=== PATIENT | female | born 1930 | race African-American/Black ===

== ENCOUNTER 2019-07-21 01:33 | Inpatient (IN) | payer OTHER, MEDICAID ==
[~2019-07-21] VITALS: Ht 172.7 cm; Wt 97.7 kg
[2019-07-21] MEDS ORDERED: IV NORMAL SALINE 1000ML BAG 1,000 ML IV ONE (02:30)
[2019-07-21 02:49] LABS: BASO # 0.1 x10^3/uL (0.0-0.2); BASO % 1 % (0-3); EOS # 0.1 x10^3/uL (0.0-0.7); EOS % 2 % (0-3); HEMATOCRIT 35.4 % (36.0-47.0); HEMOGLOBIN 11.5 g/dL (12.0-15.5); LYMPH # 1.7 x10^3/uL (1.0-4.8); LYMPH % 26 % (24-48); MEAN CORPUSCULAR HEMOGLOBIN 28 pg (25-35); MEAN CORPUSCULAR HGB CONC 33 g/dL (31-37); MEAN CORPUSCULAR VOLUME 85 fL (79-100); MONO # 0.5 x10^3/uL (0.0-1.1); MONO % 8 % (0-9); NEUT % 64 % (31-73); PLATELET COUNT 206 x10^3/uL (140-400); RED BLOOD COUNT 4.16 x10^6/uL (3.50-5.40); RED CELL DISTRIBUTION WIDTH 14.6 % (11.5-14.5); WHITE BLOOD COUNT 6.3 x10^3/uL (4.0-11.0)
[2019-07-21 03:02] LABS: CALCIUM 8.4 mg/dL (8.5-10.1); GFR 63.5; POTASSIUM 4.2 mmol/L (3.5-5.1)
--- NOTE | 2019-07-21 03:05 | PHYS DOC ---
Past Medical History Past Medical History: A-Fib, Dementia, Hypothyroid Additional Past Medical Histor: OSTEOARTHRITIS Past Medical History Limited due to dementia Past Surgical History: No Surgical History Additional Past Surgical Histo: POOR HISTORIAN Past Surgical History Limited due to dementia Smoking: Quit Greater Than 1 Year Alcohol Use: None Drug Use: None Social History Limited due to dementia Adult General Chief Complaint Chief Complaint: NEURO SYMPTOMS/DEFICITS HPI HPI 89-year-old female with past medical history of dementia presents via EMS from [facility] ([facility]) with report throat today at approximately 0030. Patient reports she lost consciousness and ended up falling thereby striking left side of her face. Patient reports she feels very "shaky ". Denies nausea or vomiting. Patient does use aspirin daily. Denies chest pain. Patient is a poor historian given history of dementia. History of present illness therefore limited. Review of Systems Review of Systems Constitutional: Denies fever or chills Eyes: Denies redness or eye pain HENT: Denies epistaxis Respiratory: Denies cough or shortness of breath Cardiovascular: Denies chest pain or palpitations GI: Denies abdominal pain, nausea, or vomiting : Denies dysuria or hematuria Integument: Denies laceration Neurologic: Reports headache and syncopal episode Review of systems limited secondary to dementia Current Medications Current Medications Current Medications Medications (Trade) Dose Ordered Sig/Branden Start Time Stop Time Status Last Admin Dose Admin Ondansetron HCl (Zofran) 4 mg PRN Q8HRS PRN 07/21/19 03:15 07/22/19 03:14 Sodium Chloride 1,000 ml @ 1,000 mls/hr 1X ONCE 07/21/19 02:30 07/21/19 03:29 DC 07/21/19 02:40 1,000 MLS/HR Allergies Allergies Allergies Coded Allergies Type Severity Reaction Last Updated Verified No Known Drug Allergies 07/21/19 No Physical Exam Physical Exam Constitutional: Well developed, well nourished, no acute distress, non-toxic appearance HENT: Normocephalic, small contusion noted with left face, oropharynx moist Eyes: PERRL, EOMI, amblyopia noted, conjunctiva normal, no discharge Neck: Normal range of motion, no midline tenderness, supple Cardiovascular: Heart rate normal, regular rhythm Lungs & Thorax: Bilateral breath sounds clear to auscultation, no wheezing Abdomen: Soft, no tenderness, pelvis stable and nontender Skin: Warm, dry, no erythema, no rash Extremities: No tenderness, ROM intact, 1+ edema Neurologic: Alert and oriented to name only, bilateral lower extremity strength 3/5, bilateral upper extremity strength 5+5, sensation intact, finger to nose cerebellar function intact Psychologic: Affect normal, judgement abnormal Current Patient Data Vital Signs Vital Signs Date Time Temp Pulse Resp B/P (MAP) Pulse Ox O2 Delivery O2 Flow Rate FiO2 07/21/19 03:40 68 20 96 07/21/19 01:33 97.6 164/87 (112) Room Air 97.6 Lab Values Laboratory Tests Test 07/21/19 02:40 07/21/19 03:28 White Blood Count 6.3 x10^3/uL (4.0-11.0) Red Blood Count 4.16 x10^6/uL (3.50-5.40) Hemoglobin 11.5 g/dL (12.0-15.5) L Hematocrit 35.4 % (36.0-47.0) L Mean Corpuscular Volume 85 fL (79-100) Mean Corpuscular Hemoglobin 28 pg (25-35) Mean Corpuscular Hemoglobin Concent 33 g/dL (31-37) Red Cell Distribution Width 14.6 % (11.5-14.5) H Platelet Count 206 x10^3/uL (140-400) Neutrophils (%) (Auto) 64 % (31-73) Lymphocytes (%) (Auto) 26 % (24-48) Monocytes (%) (Auto) 8 % (0-9) Eosinophils (%) (Auto) 2 % (0-3) Basophils (%) (Auto) 1 % (0-3) Neutrophils # (Auto) 4.0 x10^3/uL (1.8-7.7) Lymphocytes # (Auto) 1.7 x10^3/uL (1.0-4.8) Monocytes # (Auto) 0.5 x10^3/uL (0.0-1.1) Eosinophils # (Auto) 0.1 x10^3/uL (0.0-0.7) Basophils # (Auto) 0.1 x10^3/uL (0.0-0.2) Prothrombin Time 13.0 SEC (11.7-14.0) Prothrombin Time INR 1.0 (0.8-1.1) Activated Partial Thromboplast Time 32 SEC (24-38) Sodium Level 144 mmol/L (136-145) Potassium Level 4.2 mmol/L (3.5-5.1) Chloride Level 106 mmol/L (98-107) Carbon Dioxide Level 25 mmol/L (21-32) Anion Gap 13 (6-14) Blood Urea Nitrogen 29 mg/dL (7-20) H Creatinine 1.0 mg/dL (0.6-1.0) Estimated GFR (Cockcroft-Gault) 63.5 BUN/Creatinine Ratio 29 (6-20) H Glucose Level 96 mg/dL (70-99) Lactic Acid Level 1.9 mmol/L (0.4-2.0) Calcium Level 8.4 mg/dL (8.5-10.1) L Magnesium Level 2.5 mg/dL (1.8-2.4) H Total Bilirubin 0.4 mg/dL (0.2-1.0) Aspartate Amino Transferase (AST) 19 U/L (15-37) Alanine Aminotransferase (ALT) 17 U/L (14-59) Alkaline Phosphatase 66 U/L (46-116) Ammonia < 10 mcmol/L (11-34) L Creatine Kinase 156 U/L (26-192) Creatine Kinase MB (Mass) 1.6 ng/mL (0.0-3.6) Creatine Kinase MB Relative Index 1.0 % (0-4) Troponin I Quantitative < 0.017 ng/mL (0.000-0.055) Total Protein 7.8 g/dL (6.4-8.2) Albumin 3.9 g/dL (3.4-5.0) Albumin/Globulin Ratio 1.0 (1.0-1.7) Urine Collection Type U cath Urine Color Yellow Urine Clarity Clear Urine pH 6.5 Urine Specific Victor 1.020 Urine Protein Negative mg/dL (NEG-TRACE) Urine Glucose (UA) Negative mg/dL (NEG) Urine Ketones (Stick) Negative mg/dL (NEG) Urine Blood Negative (NEG) Urine Nitrite Negative (NEG) Urine Bilirubin Negative (NEG) Urine Urobilinogen Dipstick 1.0 mg/dL (0.2 mg/dL) Urine Leukocyte Esterase Small (NEG) Urine RBC Occ /HPF (0-2) Urine WBC 1-4 /HPF (0-4) Urine Squamous Epithelial Cells Few /LPF Urine Amorphous Sediment Present /HPF Urine Bacteria 0 /HPF (0-FEW) Urine Mucus Slight /LPF Laboratory Tests 07/21/19 02:40 Laboratory Tests 07/21/19 02:40 EKG EKG @ 0245 NSR at 82 bpm, occasional PVC, NO ST elevation, QRS 94ms, QT/QTc 408/480ms Radiology/Procedures Radiology/Procedures PROCEDURE: CT HEAD, CERVICAL SPINE, & MAXILLOFACIAL WO CONTRAST CT Head W/O Contrast: History: Pain status post fall Comparison: none Axial images were obtained without contrast. There is moderate diffuse atrophy. There is no mass effect, extraaxial fluid collections or hydrocephalus. There is no gross bleed. Mild to moderate, patchy periventricular and subcortical white matter hypoattenuation is seen. There is no focal loss of lyons-white matter distinction to suggest acute ischemia, i.e. stroke. Impression: No acute findings. End impression CT maxillofacial without contrast History: sinus infection Axial helical images of the face were obtained without contrast. Axial and coronal reconstruction was performed. The nasal septum is mostly midline. The ostiomeatal complexes are narrow but patent. The paranasal sinuses are clear. The visualized osseous structures appear intact. The orbits appear normal. There is a hematoma above the left orbit. Impression: Immature lobe of the left orbit. No fracture seen. End impression CT C-Spine without contrast: Clinical History: Pain status post fall Technique: Axial helical images of the cervical spine were obtained without contrast, axial coronal and sagittal reconstruction was performed. Findings: There is no loss of vertebral body stature. There is no prevertebral soft tissue swelling. The vertebral bodies are well aligned. There is minimal reversal of the normal cervical lordosis which can be positional or could be chronic. The C1-C2 relationship is normal. There is gross osteopenia which limits sensitivity for possible nondisplaced fracture. The visualized osseous survey. Intact. Evaluation of the central canal is limited without contrast. There is multiple posterior disc bulges resulting in flattening of the thecal sac. There does not appear to be gross flattening of the cervical cord. There is moderate narrowing of multiple neuroforamen. There is a 4 cm cystic lesion in the left lobe of the thyroid. Impression: 1. 4 cm cystic lesion in the left lobe of the thyroid. The patient should have a follow-up ultrasound thyroid as an outpatient. 2. Gross osteopenia could be secondary to osteoporosis. 3. No evidence of fracture or malalignment. Clinical correlation suggested. PQRS Compliance Statement: One or more of the following individualized dose reduction techniques were utilized for this examination: 1. Automated exposure control 2. Adjustment of the mA and/or kV according to patient size 3. Use of iterative reconstruction technique Electronically signed by: Oneal Diaz III, MD (07/21/2019 3:29 AM) [facility] Course & Med Decision Making Course & Med Decision Making Pertinent Labs and Imaging studies reviewed. (See chart for details) She with past medical history of dementia presents with report of syncopal episode striking left side of her face. History of aspirin use. NIHSS 7 primarily due to BLE weakness (2pts each LE). EKG stable. Labs obtained and posted to chart. Chest x-ray stable. CT head/cervical spine/maxillofacial without acute process. An incidental thyroid cyst appreciated. A copy of CT results provided to patient's family for outpatient follow-up. Patient requiring admission for further evaluation and treatment. Discussed with Dr. Morejon (hospitalist) who is in agreement with admission. Neurology consultation placed. Discussed findings and plan with patient and family, who acknowledge understanding and agreement. Dragon Disclaimer Dragon Disclaimer This electronic medical record was generated, in whole or in part, using a voice recognition dictation system. Departure Departure Impression: Primary Impression: Weakness Additional Impressions: Facial contusion Thyroid cyst Disposition: ADMITTED INPATIENT Admitting Physician: TRIPP (Darleen) Condition: STABLE Referrals: CARMENCITA ECHAVARRIA MD (PCP) NIHSS Stroke Scale NIH Stroke Scale: NIH Stroke Scale Response (Comments) Value Level of Consciousness: 0 Alert/Responsive 0 LOC Questions: 2 Answers neither correct 2 LOC Commands: 0 Performs both tasks 0 Best Gaze: 0 Normal 0 Visual: 0 No visual loss 0 Facial Palsy: 0 Normal, symmetrical 0 Motor - Left Arm 0 No drift 0 Motor - Right Arm 0 No drift 0 Motor - Left Leg 2 Some effort 2 Motor: Right Leg 2 Some effort 2 Limb Ataxia: 0 Absent 0 Sensory: 0 No loss 0 Best Language: 1 Mild to mod aphasia 1 Dysathria: 0 Normal 0 Extinction and Inattention: 0 Normal 0 Total 7 Problem Qualifiers Additional Impressions: Facial contusion Encounter type: initial encounter Qualified Codes: S00.83XA - Contusion of other part of head, initial encounter RADHA QUIJANO DO Jul 21, 2019 03:05
[2019-07-21 03:06] LABS: ALBUMIN 3.9 g/dL (3.4-5.0); MAGNESIUM 2.5 mg/dL (1.8-2.4); TOTAL BILIRUBIN 0.4 mg/dL (0.2-1.0); TOTAL PROTEIN 7.8 g/dL (6.4-8.2)
[2019-07-21] MEDS ORDERED: ONDANSETRON PF 4 MG/2 ML VIAL. IV PRN (03:15)
--- NOTE | 2019-07-21 03:32 | RAD ---
CT Head W/O Contrast: History: Pain status post fall Comparison: none Axial images were obtained without contrast. There is moderate diffuse atrophy. There is no mass effect, extraaxial fluid collections or hydrocephalus. There is no gross bleed. Mild to moderate, patchy periventricular and subcortical white matter hypoattenuation is seen. There is no focal loss of lyons-white matter distinction to suggest acute ischemia, i.e. stroke. Impression: No acute findings. End impression CT maxillofacial without contrast History: sinus infection Axial helical images of the face were obtained without contrast. Axial and coronal reconstruction was performed. The nasal septum is mostly midline. The ostiomeatal complexes are narrow but patent. The paranasal sinuses are clear. The visualized osseous structures appear intact. The orbits appear normal. There is a hematoma above the left orbit. Impression: Immature lobe of the left orbit. No fracture seen. End impression CT C-Spine without contrast: Clinical History: Pain status post fall Technique: Axial helical images of the cervical spine were obtained without contrast, axial coronal and sagittal reconstruction was performed. Findings: There is no loss of vertebral body stature. There is no prevertebral soft tissue swelling. The vertebral bodies are well aligned. There is minimal reversal of the normal cervical lordosis which can be positional or could be chronic. The C1-C2 relationship is normal. There is gross osteopenia which limits sensitivity for possible nondisplaced fracture. The visualized osseous survey. Intact. Evaluation of the central canal is limited without contrast. There is multiple posterior disc bulges resulting in flattening of the thecal sac. There does not appear to be gross flattening of the cervical cord. There is moderate narrowing of multiple neuroforamen. There is a 4 cm cystic lesion in the left lobe of the thyroid. Impression: 1. 4 cm cystic lesion in the left lobe of the thyroid. The patient should have a follow-up ultrasound thyroid as an outpatient. 2. Gross osteopenia could be secondary to osteoporosis. 3. No evidence of fracture or malalignment. Clinical correlation suggested. PQRS Compliance Statement: One or more of the following individualized dose reduction techniques were utilized for this examination: 1. Automated exposure control 2. Adjustment of the mA and/or kV according to patient size 3. Use of iterative reconstruction technique Electronically signed by: Oneal Diaz III, MD (07/21/2019 3:29 AM) [facility]
[2019-07-21 03:40] LABS: BILIRUBIN,URINE NEGATIVE (NEG); CLARITY,URINE CLEAR; COLOR,URINE YELLOW; NITRITE,URINE NEGATIVE (NEG); PH,URINE 6.5; PROTEIN,URINE NEGATIVE (NEG-TRACE)
[2019-07-21 03:47] LABS: AMORPHOUS SEDIMENT,UR PRESENT /HPF; BACTERIA,URINE 0 /HPF (0-FEW); RBC,URINE OCC /HPF (0-2); SQUAMOUS EPITHELIAL CELL,UR FEW /LPF
[2019-07-21 04:00] VITALS: BP 167/90
--- NOTE | 2019-07-21 04:47 | NUR ---
Around 0405 pt. arrived from ED via bed w/ weakness and L-facial contusion r/t fall @ NH. She is A/O to self and can make some needs known. Family @ BS.
[2019-07-21] MEDS ORDERED: MELA3TAB56 PO (06:03)
[2019-07-21] MEDS ORDERED: MELO7.5T29 PO (06:03)
[2019-07-21] MEDS ORDERED: DILT120T3 PO (06:03)
[2019-07-21] MEDS ORDERED: FERR325T14 PO (06:03)
[2019-07-21] MEDS ORDERED: CHOL10003 PO (06:03)
[2019-07-21] MEDS ORDERED: CALC-530 PO (06:03)
[2019-07-21] MEDS ORDERED: DONE5TAB7 PO (06:03)
[2019-07-21] MEDS ORDERED: ACET325T9 PO (06:03)
[2019-07-21] MEDS ORDERED: ASPI81TA50 PO (06:03)
[2019-07-21] MEDS ORDERED: MENT118G TP (06:03)
[2019-07-21] MEDS ORDERED: LEVO50TA5 PO (06:03)
[2019-07-21] MEDS ORDERED: tumeric PO (06:05)
--- NOTE | 2019-07-21 06:12 | RAD ---
CHEST AP ONLY Clinical History: Technique: AP view of the chest was obtained at 07/21/2019 1:51 AM. Comparison: None. Findings: The heart is borderline enlarged. The pulmonary vasculature is normal. The lungs and pleural margins are clear. There is prior right shoulder total arthroplasty. There is marked degenerative changes of the left shoulder. Impression: Borderline cardiomegaly. Electronically signed by: Oneal Diaz III, MD (07/21/2019 6:09 AM) [facility]
--- NOTE | 2019-07-21 06:18 | NUR ---
Notified 's answering service about consult.
--- NOTE | 2019-07-21 07:05 | EKG ---
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
[2019-07-21 07:35] VITALS: BP 150/79
--- NOTE | 2019-07-21 10:29 | HP ---
ADMIT DATE: 07/21/2019 CHIEF COMPLAINT: Syncope. HISTORY OF PRESENT ILLNESS: The patient is a pleasant 89-year-old female, who has mild dementia. 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 Now, she has got some mild dementia, lives at [facility] and reportedly had a near syncopal episode at 12:30 in this morning. She lost consciousness and ended up falling, striking the left side of her face. She feels very shaky. Rates her symptoms at 6/10, has associated weakness. I discussed the case with ER physician. We have admitted the patient and going to be consulting Cardiology and Neurology. Dr. Berry just saw the patient before I did. He is ordering an MRI. PAST MEDICAL HISTORY: Dementia, AFib, hypothyroidism, osteoarthritis, poor historian. ALLERGIES: None. FAMILY HISTORY: Diabetes. SOCIAL HISTORY: She does not drink, smoke, or take drugs. She currently lives at [facility]. MEDICATIONS: Reviewed, please refer to the MRAD. REVIEW OF SYSTEMS: GENERAL: She complains of weakness. SKIN: No bruising, hair changes or rashes. EYES: No blurred, double or loss of vision. NOSE AND THROAT: No history of nosebleeds, hoarseness or sore throat. HEART: No history of palpitations, chest pain or shortness of breath on exertion. LUNGS: Denies cough, hemoptysis, wheezing or shortness of breath. GASTROINTESTINAL: Denies changes in appetite, nausea, vomiting, diarrhea or constipation. GENITOURINARY: No history of frequency, urgency, hesitancy or nocturia. NEUROLOGIC: Denies history of numbness, tingling, tremor or weakness. PSYCHIATRIC: No history of panic, anxiety or depression. ENDOCRINE: No history of heat or cold intolerance, polyuria or polydipsia. EXTREMITIES: She complains of hand pain from her arthritis. PHYSICAL EXAMINATION: VITALS: Within normal limits and are stable. GENERAL: No apparent distress. Alert and oriented. HEENT: Head is normocephalic, atraumatic. The left eye is deviated more to the left than the right eye. Apparently, this is her baseline. NECK: Supple, no JVD, no thyromegaly was noted. LUNGS: Clear to auscultation in all lung ibarra without rhonchi or wheezing. HEART: RRR, S1, S2 present. Peripheral pulses intact, no obvious murmurs were noted. ABDOMEN: Soft, nontender. Positive bowel sounds no organomegaly, normal bowel sounds. EXTREMITIES: Without any cyanosis, clubbing, or edema. Pedal pulses intact, Homans sign is negative. She does have arthritic changes of the joints on her fingers. NEUROLOGIC: Normal speech, normal tone. A & O x3, moves all extremities, no obvious focal deficits. PSYCHIATRIC: She is a little anxious, little intermittently confused. (Her daughter and son are here, they are good support). SKIN: No ulcerations or rashes, good skin turgor, no jaundice. VASCULAR: Good capillary refill, neurovascular bundle appears to be intact. LABORATORY DATA: Hematology: White count is 6, hemoglobin 11.5, platelets 206. Electrolytes are pending. Troponin is 0. Urinalysis: Small amount of leukocyte esterase with occasional white cells. There are some squamous epithelial cells present as was suspected. The urinalysis is contaminated. INR is 1. CT of the head showed immature lobe of the left orbit, but no acute fractures were noted. There is a 4-mm cyst on the left lobe of the thyroid. Osteopenia was noted. Chest x-ray shows borderline cardiomegaly. ASSESSMENT AND PLAN: Syncopal episode with cardiomegaly and dementia and advanced osteoarthritis. The patient is being admitted. We will consult Neurology, Cardiology, and Rheumatology. Cardiac monitoring, serial enzymes, serial EKGs, check a BNP level, echocardiogram, PT/OT, home meds, DVT prophylaxis, full code. The family has requested that she go to rehab after this if possible. I will order a longterm unit evaluation. KIARA OLIVAREZ DO DR: KARSTEN/drew JOB#: [id number] / [id number]
[2019-07-21] MEDS ORDERED: ACETAMINOPHEN 325 MG TABLET. PO PRN (11:00)
[2019-07-21] MEDS: LEVOTHYROXINE 50 MCG TABLET PO SCH (11:00)
[2019-07-21 11:14] VITALS: BP 157/80
[2019-07-21] MEDS ORDERED: METHYL SALICYLATE/MENTHOL TOPICAL OINTMENT 57GM TUBE. TP PRN (11:15)
--- NOTE | 2019-07-21 12:54 | PDOC2 ---
CARDIAC CONSULT DATE OF CONSULT Date of Consult DATE: 07/21/19 TIME: 12:48 REASON FOR CONSULT Reason for Consult: Syncope CHF Possible pulmonary edema REFERRING PHYSICIAN Referring Physician: Dr. Hernandez SOURCE Source: Chart review, Patient HISTORY OF PRESENT ILLNESS HISTORY OF PRESENT ILLNESS This is am 89 yo female, with a history of AFIB and dementia, who presented secondary to syncopal episode. Patient lives in independently living facility. Was found down on the floor by staff. Suffered abrasion to the left forehead. Was brought to the ED for further evaluation/treatment. HPI limited secondary to dementia. Patient unable to recall events of fall, syncopal episode. Presently denies any chest pain, shortness of breath, dizziness, diaphoresis, or nausea/vomiting. Patient reports feeing "shaky" with hand tremors. Daughter does report that she noticed for shortness of breath upon exertion this past Sunday d uring an outing. Previously followed by cardiology. PAST MEDICAL HISTORY Cardiovascular: AFIB (paroxysmal ), Aortic stenosis CENTRAL NERVOUS SYSTEM: Dementia Musculoskeletal: Osteoarthritis PAST SURGICAL HISTORY Past Surgical History: No pertinent history FAMILY HISTORY Family History: Coronary Artery Disease (daughter), Diabetes SOCIAL HISTORY Smoke: Quit ALCOHOL: none Drugs: None Lives: Group Home (independent living facility ) CURRENT MEDICATIONS CURRENT MEDICATIONS Current Medications Medications (Trade) Dose Ordered Sig/Branden Route PRN Reason Start Time Stop Time Status Last Admin Dose Admin Sodium Chloride 1,000 ml @ 1,000 mls/hr 1X ONCE IV 07/21/19 02:30 07/21/19 03:29 DC 07/21/19 02:40 ALLERGIES ALLERGIES: Coded Allergies: No Known Drug Allergies (Unverified , 07/21/19) ROS Review of System 14 point ROS conducted with pertinent positives noted above in PHI. Limited due to dementia PHYSICAL EXAM General: Alert (to person only ), Cooperative, No acute distress HEENT: Atraumatic Lungs: Clear to auscultation, Normal air movement Heart: Regular rate, Normal S1, Normal S2, Other (3/6 systolic murmur ) Abdomen: Soft, No tenderness Extremities: No edema, Normal pulses Skin: No breakdown, No significant lesion Neuro: Normal speech, Sensation intact Psych/Mental Status: Mood NL MUSCULOSKELETAL: Osteoarthritic changes both hands VITALS/I&O VITALS/I&O: Vital Signs Date Time Temp Pulse Resp B/P (MAP) Pulse Ox O2 Delivery O2 Flow Rate FiO2 10/28/19 11:14 98.8 83 18 157/80 (105) 96 Room Air 98.8 I & O 07/20/19 07/20/19 07/21/19 15:00 23:00 07:00 Intake Total 1000 ml Balance 1000 ml LABS Lab: Laboratory Tests Test 07/21/19 02:40 07/21/19 03:28 07/21/19 06:15 07/21/19 08:50 White Blood Count 6.3 x10^3/uL (4.0-11.0) Red Blood Count 4.16 x10^6/uL (3.50-5.40) Hemoglobin 11.5 g/dL (12.0-15.5) L Hematocrit 35.4 % (36.0-47.0) L Mean Corpuscular Volume 85 fL (79-100) Mean Corpuscular Hemoglobin 28 pg (25-35) Mean Corpuscular Hemoglobin Concent 33 g/dL (31-37) Red Cell Distribution Width 14.6 % (11.5-14.5) H Platelet Count 206 x10^3/uL (140-400) Neutrophils (%) (Auto) 64 % (31-73) Lymphocytes (%) (Auto) 26 % (24-48) Monocytes (%) (Auto) 8 % (0-9) Eosinophils (%) (Auto) 2 % (0-3) Basophils (%) (Auto) 1 % (0-3) Neutrophils # (Auto) 4.0 x10^3/uL (1.8-7.7) Lymphocytes # (Auto) 1.7 x10^3/uL (1.0-4.8) Monocytes # (Auto) 0.5 x10^3/uL (0.0-1.1) Eosinophils # (Auto) 0.1 x10^3/uL (0.0-0.7) Basophils # (Auto) 0.1 x10^3/uL (0.0-0.2) Prothrombin Time 13.0 SEC (11.7-14.0) Prothrombin Time INR 1.0 (0.8-1.1) Activated Partial Thromboplast Time 32 SEC (24-38) Sodium Level 144 mmol/L (136-145) Potassium Level 4.2 mmol/L (3.5-5.1) Chloride Level 106 mmol/L (98-107) Carbon Dioxide Level 25 mmol/L (21-32) Anion Gap 13 (6-14) Blood Urea Nitrogen 29 mg/dL (7-20) H Creatinine 1.0 mg/dL (0.6-1.0) Estimated GFR (Cockcroft-Gault) 63.5 BUN/Creatinine Ratio 29 (6-20) H Glucose Level 96 mg/dL (70-99) Lactic Acid Level 1.9 mmol/L (0.4-2.0) Calcium Level 8.4 mg/dL (8.5-10.1) L Magnesium Level 2.5 mg/dL (1.8-2.4) H Total Bilirubin 0.4 mg/dL (0.2-1.0) Aspartate Amino Transferase (AST) 19 U/L (15-37) Alanine Aminotransferase (ALT) 17 U/L (14-59) Alkaline Phosphatase 66 U/L (46-116) Ammonia < 10 mcmol/L (11-34) L Creatine Kinase 156 U/L (26-192) Creatine Kinase MB (Mass) 1.6 ng/mL (0.0-3.6) Creatine Kinase MB Relative Index 1.0 % (0-4) Troponin I Quantitative < 0.017 ng/mL (0.000-0.055) < 0.017 ng/mL (0.000-0.055) < 0.017 ng/mL (0.000-0.055) Total Protein 7.8 g/dL (6.4-8.2) Albumin 3.9 g/dL (3.4-5.0) Albumin/Globulin Ratio 1.0 (1.0-1.7) Urine Collection Type U cath Urine Color Yellow Urine Clarity Clear Urine pH 6.5 Urine Specific [place] 1.020 Urine Protein Negative mg/dL (NEG-TRACE) Urine Glucose (UA) Negative mg/dL (NEG) Urine Ketones (Stick) Negative mg/dL (NEG) Urine Blood Negative (NEG) Urine Nitrite Negative (NEG) Urine Bilirubin Negative (NEG) Urine Urobilinogen Dipstick 1.0 mg/dL (0.2 mg/dL) Urine Leukocyte Esterase Small (NEG) Urine RBC Occ /HPF (0-2) Urine WBC 1-4 /HPF (0-4) Urine Squamous Epithelial Cells Few /LPF Urine Amorphous Sediment Present /HPF Urine Bacteria 0 /HPF (0-FEW) Urine Mucus Slight /LPF HV-Kip-[id number]-Type Natriuretic Peptide 649 pg/mL (0-449) H Laboratory Tests 07/21/19 02:40 Laboratory Tests 07/21/19 02:40 ECHOCARDIOGRAM ECHOCARDIOGRAM 10/07/18 - 2-D + DOPPLER ECHOCARDIOGRAM Normal left ventricular function with no wall motion abnormalities. Estimated EF of 60%. Normal left ventricular diastolic function. Mild eccentric left ventricular hypertrophy with prominent basal septum. The right ventricle is not well visualized but has normal function on quantitative assessment. Normal left atrial size. The right atrium is not well visualized. The aortic valve is severely sclerotic with out stenosis per doppler assessment. However, the stroke volume indexed is 33 ml/m2 and this may under estimate the degree of stenosis. No pericardial effusion. Estimated PASP 26 mmHg. This study was compared to echocardiogram 06/07/15. The prior study showed normal LVEF of 60%, mild concentric LVH, severely sclerotic aortic valve with no significant stenosis (peak AV velocity 2.4 m/s), the indexed stroke volume was 31 ml/m2, normal sized cardiac chambers, normal right ventricular function and PASP of 24 mmHg. ASSESSMENT/PLAN ASSESSMENT/PLAN 1. Fall, syncopal episode. Details limited to dementia 2. PAFIB; maintaining SR. No acute event on tele thus far. Echo 09/2018 with preserved LV systolic function as noted above 3. 4. Chronic diastolic CHF; appears clinically compensated. NT Pro BNP elevated, but insignificant based upon age adjustment. CXR without vascular congestion Recommendations ASA for stroke prevention. Poor candidate for OAC given dementia, fall risk Continue Cardizem for rate control Monitor tele Echo to assess LV systolic function Supportive care UBALDO YEAGER APRN Jul 21, 2019 12:54
--- NOTE | 2019-07-21 13:40 | NUR ---
SS following for discharge planning. SS reviewed pt chart. Pt is from [facility], ; fax [phone]. SS contacted [facility] and verified pt's placement. Pt is currently on room air. SS will continue to follow for discharge planning.
--- NOTE | 2019-07-21 13:43 | PDOC2 ---
NEUROLOGY CONSULT Date of Admission Date of Admission DATE: 07/21/19 TIME: 13:36 Reason for Consult Reason for Consult: weakness Referring Physician Referring Physician: Dr. Hernandez Source Source: Chart review, Patient History of Present Illness History of Present Illness The patient is an 89-year-old right-handed female with dementia who felt lightheaded this morning. She feels weak all over. Complains of headache and neck pain. She is worried that something is going on in her neck. There is no history of stroke, seizure, or head injury. She says it she has stiffness of her hands for the past several days and can't move them. ISTORY OF PRESENT ILLNESS: The patient is a pleasant 89-year-old female, who has mild dementia. 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 Now, she has got some mild dementia, lives at [facility] and reportedly had a near syncopal episode at 12:30 in this morning. She lost consciousness and ended up falling, striking the left side of her face. She feels very shaky. Rates her symptoms at 6/10, has associated weakness. I discussed the case with ER physician. We have admitted the patient and going to be consulting Cardiology and Neurology. Dr. Berry just saw the patient before I did. He is ordering an MRI. PAST MEDICAL HISTORY: Dementia, AFib, hypothyroidism, osteoarthritis, poor historian. ALLERGIES: None. FAMILY HISTORY: Diabetes. SOCIAL HISTORY: She does not drink, smoke, or take drugs. She currently lives at [facility]. MEDICATIONS: Reviewed, please refer to the MRAD. REVIEW OF SYSTEMS: GENERAL: She complains of weakness. SKIN: No bruising, hair changes or rashes. EYES: No blurred, double or loss of vision. NOSE AND THROAT: No history of nosebleeds, hoarseness or sore throat. HEART: No history of palpitations, chest pain or shortness of breath on exertion. LUNGS: Denies cough, hemoptysis, wheezing or shortness of breath. GASTROINTESTINAL: Denies changes in appetite, nausea, vomiting, diarrhea or constipation. GENITOURINARY: No history of frequency, urgency, hesitancy or nocturia. NEUROLOGIC: Denies history of numbness, tingling, tremor or weakness. PSYCHIATRIC: No history of panic, anxiety or depression. ENDOCRINE: No history of heat or cold intolerance, polyuria or polydipsia. EXTREMITIES: She complains of hand pain from her arthritis. PHYSICAL EXAMINATION: VITALS: Within normal limits and are stable. GENERAL: No apparent distress. Alert and oriented. HEENT: Head is normocephalic, atraumatic. The left eye is deviated more to the left than the right eye. Apparently, this is her baseline. NECK: Supple, no JVD, no thyromegaly was noted. LUNGS: Clear to auscultation in all lung ibarra without rhonchi or wheezing. HEART: RRR, S1, S2 present. Peripheral pulses intact, no obvious murmurs were noted. ABDOMEN: Soft, nontender. Positive bowel sounds no organomegaly, normal bowel sounds. EXTREMITIES: Without any cyanosis, clubbing, or edema. Pedal pulses intact, Homans sign is negative. She does have arthritic changes of the joints on her fingers. NEUROLOGIC: Normal speech, normal tone. A & O x3, moves all extremities, no obvious focal deficits. PSYCHIATRIC: She is a little anxious, little intermittently confused. (Her daughter and son are here, they are good support). SKIN: No ulcerations or rashes, good skin turgor, no jaundice. VASCULAR: Good capillary refill, neurovascular bundle Past Medical History Cardiovascular: AFIB CENTRAL NERVOUS SYSTEM: Dementia Musculoskeletal: Osteoarthritis Family History Family History: No pertinent hx Social History Social History , no alcohol or tobacco Current Medications Current Medications Current Medications Sodium Chloride 1,000 ml @ 1,000 mls/hr 1X ONCE IV Last administered on 07/21/19at 02:40; Start 07/21/19 at 02:30; Stop 07/21/19 at 03:29; Status DC Ondansetron HCl (Zofran) 4 mg PRN Q8HRS PRN IV NAUSEA/VOMITING; Start 07/21/19 at 03:15; Stop 07/22/19 at 03:14 Acetaminophen (Tylenol) 650 mg PRN Q8HRS PRN PO PAIN; Start 07/21/19 at 11:00 Aspirin (Ecotrin) 81 mg DAILY PO ; Start 07/22/19 at 09:00 Vitamin D (Vitamin D3) 1,000 unit BID PO ; Start 07/21/19 at 21:00 Donepezil HCl (Aricept) 5 mg DAILY PO ; Start 07/21/19 at 11:00 Ferrous Sulfate (Feosol) 325 mg DAILY PO ; Start 07/21/19 at 11:00 Levothyroxine Sodium (Synthroid) 50 mcg DAILY07 PO ; Start 07/21/19 at 11:00 Meloxicam (Mobic) 7.5 mg BID PO ; Start 07/21/19 at 21:00 Calcium Carbonate/ Glycine (Oscal) 500 mg BIDAFTMEAL PO ; Start 07/21/19 at 13:00 Diltiazem HCl (Cardizem 24hr Cd) 120 mg DAILY PO ; Start 07/21/19 at 11:00 Non-Formulary Medication (Melatonin ) 10 mg HS PO ; Start 07/21/19 at 21:00; Status UNV Multi-Ingredient Ointment (Analgesic [place]) 1 kirstie PRN QID PRN TP MUSCLE PAIN; Start 07/21/19 at 11:15 Non-Formulary Medication ([tumeric] ) 500 mg DAILY PO ; Start 07/22/19 at 09:00; Status UNV Active Scripts Active Reported [tumeric] 500 Mg PO DAILY Biofreeze (Menthol) 118 Ml Gel..ml. 1 Kirstie TP QIDPRN PRN 7 Days Tylenol (Acetaminophen) 325 Mg Tablet 650 Mg PO PRN Q8HRS PRN Melatonin 3 Mg Tablet 10 Mg PO HS Vitamin D3 (Cholecalciferol (Vitamin D3)) 1,000 Unit Tablet 1,000 Unit PO BID Meloxicam 7.5 Mg Tablet 1 Tab PO BID 30 Days Calcium Carbonate 300 Mg Tab.chew 600 Mg PO BID Levothyroxine Sodium 50 Mcg Tablet 1 Tab PO DAILY Ferrous Sulfate 325 Mg Tablet 1 Tab PO DAILY Donepezil Hcl 5 Mg Tablet 1 Tab PO DAILY Diltiazem Hcl Tablet (Diltiazem Hcl) 120 Mg Tablet 120 Mg PO DAILY Aspir-Low (Aspirin) 81 Mg Tablet.dr 1 Tab PO DAILY Allergies Allergies: Coded Allergies: No Known Drug Allergies (Unverified , 07/21/19) ROS Review of System Negative for fever, chills, weight loss, shortness of breath, chest pain, indigestion, hematochezia, melena, and dysuria. Full 14-point review of systems is negative. Physical Exam Physical Examination General: Well-developed, well-nourished black female in no acute distress HEENT: Normocephalic andatraumatic. Temporal arteriespulsatile and nontender. Neck: Supple without bruit, no meningismus Musculoskeletal: Stability:see neurologic. Gait exam:see neurologic. Tone:see neurologic.Strength:see neurologic. Neurological: Mental Status:orientation, memory, attention span/concentration, language, fund of knowledge: Poor historian, knows location, not date. Cranial Nerves:Pupils equal and reactive to light, extraocular movements areintact, visual ibarra are full to confrontation. Facial sensation is normal. There is no facial asymmetry. Vestibulo-ocular reflex is intact. Palate elevates and tongue protrudes in midline. All other cranial related problems are negative except as mentioned before.Reflexes:2+ and symmetric with flexor plantar responses. Motor:4/5 strength with normal tone and bulk, peculiar inability to use hands, seems more musculoskeletal than any type of weakness from a neurological issue or dystonia. Coordination:Finger-nose finger and [id number]-so-rppc testing are normal. Rapid alternating movements and fine finger movements are intact. Gait: stands outside of bed, cannot take a step. Sensory:Normal pinprick, vibration, light touch, proprioception. Vitals VITALS Vital Signs Date Time Temp Pulse Resp B/P (MAP) Pulse Ox O2 Delivery O2 Flow Rate FiO2 07/21/19 11:14 98.8 83 18 157/80 (105) 96 Room Air 98.8 Labs Labs Laboratory Tests Test 07/21/19 02:40 07/21/19 03:28 07/21/19 06:15 07/21/19 08:50 White Blood Count 6.3 x10^3/uL (4.0-11.0) Red Blood Count 4.16 x10^6/uL (3.50-5.40) Hemoglobin 11.5 g/dL (12.0-15.5) Hematocrit 35.4 % (36.0-47.0) Mean Corpuscular Volume 85 fL (79-100) Mean Corpuscular Hemoglobin 28 pg (25-35) Mean Corpuscular Hemoglobin Concent 33 g/dL (31-37) Red Cell Distribution Width 14.6 % (11.5-14.5) Platelet Count 206 x10^3/uL (140-400) Neutrophils (%) (Auto) 64 % (31-73) Lymphocytes (%) (Auto) 26 % (24-48) Monocytes (%) (Auto) 8 % (0-9) Eosinophils (%) (Auto) 2 % (0-3) Basophils (%) (Auto) 1 % (0-3) Neutrophils # (Auto) 4.0 x10^3/uL (1.8-7.7) Lymphocytes # (Auto) 1.7 x10^3/uL (1.0-4.8) Monocytes # (Auto) 0.5 x10^3/uL (0.0-1.1) Eosinophils # (Auto) 0.1 x10^3/uL (0.0-0.7) Basophils # (Auto) 0.1 x10^3/uL (0.0-0.2) Prothrombin Time 13.0 SEC (11.7-14.0) Prothromb Time International Ratio 1.0 (0.8-1.1) Activated Partial Thromboplast Time 32 SEC (24-38) Sodium Level 144 mmol/L (136-145) Potassium Level 4.2 mmol/L (3.5-5.1) Chloride Level 106 mmol/L (98-107) Carbon Dioxide Level 25 mmol/L (21-32) Anion Gap 13 (6-14) Blood Urea Nitrogen 29 mg/dL (7-20) Creatinine 1.0 mg/dL (0.6-1.0) Estimated GFR (Cockcroft-Gault) 63.5 BUN/Creatinine Ratio 29 (6-20) Glucose Level 96 mg/dL (70-99) Lactic Acid Level 1.9 mmol/L (0.4-2.0) Calcium Level 8.4 mg/dL (8.5-10.1) Magnesium Level 2.5 mg/dL (1.8-2.4) Total Bilirubin 0.4 mg/dL (0.2-1.0) Aspartate Amino Transf (AST/SGOT) 19 U/L (15-37) Alanine Aminotransferase (ALT/SGPT) 17 U/L (14-59) Alkaline Phosphatase 66 U/L (46-116) Ammonia < 10 mcmol/L (11-34) Creatine Kinase 156 U/L (26-192) Creatine Kinase MB (Mass) 1.6 ng/mL (0.0-3.6) Creatine Kinase MB Relative Index 1.0 % (0-4) Troponin I Quantitative < 0.017 ng/mL (0.000-0.055) < 0.017 ng/mL (0.000-0.055) < 0.017 ng/mL (0.000-0.055) Total Protein 7.8 g/dL (6.4-8.2) Albumin 3.9 g/dL (3.4-5.0) Albumin/Globulin Ratio 1.0 (1.0-1.7) Urine Collection Type U cath Urine Color Yellow Urine Clarity Clear Urine pH 6.5 Urine Specific [place] 1.020 Urine Protein Negative mg/dL (NEG-TRACE) Urine Glucose (UA) Negative mg/dL (NEG) Urine Ketones (Stick) Negative mg/dL (NEG) Urine Blood Negative (NEG) Urine Nitrite Negative (NEG) Urine Bilirubin Negative (NEG) Urine Urobilinogen Dipstick 1.0 mg/dL (0.2 mg/dL) Urine Leukocyte Esterase Small (NEG) Urine RBC Occ /HPF (0-2) Urine WBC 1-4 /HPF (0-4) Urine Squamous Epithelial Cells Few /LPF Urine Amorphous Sediment Present /HPF Urine Bacteria 0 /HPF (0-FEW) Urine Mucus Slight /LPF [id number]-Type Natriuretic Peptide 649 pg/mL (0-449) Laboratory Tests Test 07/21/19 02:40 07/21/19 03:28 07/21/19 06:15 07/21/19 08:50 White Blood Count 6.3 x10^3/uL (4.0-11.0) Red Blood Count 4.16 x10^6/uL (3.50-5.40) Hemoglobin 11.5 g/dL (12.0-15.5) Hematocrit 35.4 % (36.0-47.0) Mean Corpuscular Volume 85 fL (79-100) Mean Corpuscular Hemoglobin 28 pg (25-35) Mean Corpuscular Hemoglobin Concent 33 g/dL (31-37) Red Cell Distribution Width 14.6 % (11.5-14.5) Platelet Count 206 x10^3/uL (140-400) Neutrophils (%) (Auto) 64 % (31-73) Lymphocytes (%) (Auto) 26 % (24-48) Monocytes (%) (Auto) 8 % (0-9) Eosinophils (%) (Auto) 2 % (0-3) Basophils (%) (Auto) 1 % (0-3) Neutrophils # (Auto) 4.0 x10^3/uL (1.8-7.7) Lymphocytes # (Auto) 1.7 x10^3/uL (1.0-4.8) Monocytes # (Auto) 0.5 x10^3/uL (0.0-1.1) Eosinophils # (Auto) 0.1 x10^3/uL (0.0-0.7) Basophils # (Auto) 0.1 x10^3/uL (0.0-0.2) Prothrombin Time 13.0 SEC (11.7-14.0) Prothromb Time International Ratio 1.0 (0.8-1.1) Activated Partial Thromboplast Time 32 SEC (24-38) Sodium Level 144 mmol/L (136-145) Potassium Level 4.2 mmol/L (3.5-5.1) Chloride Level 106 mmol/L (98-107) Carbon Dioxide Level 25 mmol/L (21-32) Anion Gap 13 (6-14) Blood Urea Nitrogen 29 mg/dL (7-20) Creatinine 1.0 mg/dL (0.6-1.0) Estimated GFR (Cockcroft-Gault) 63.5 BUN/Creatinine Ratio 29 (6-20) Glucose Level 96 mg/dL (70-99) Lactic Acid Level 1.9 mmol/L (0.4-2.0) Calcium Level 8.4 mg/dL (8.5-10.1) Magnesium Level 2.5 mg/dL (1.8-2.4) Total Bilirubin 0.4 mg/dL (0.2-1.0) Aspartate Amino Transf (AST/SGOT) 19 U/L (15-37) Alanine Aminotransferase (ALT/SGPT) 17 U/L (14-59) Alkaline Phosphatase 66 U/L (46-116) Ammonia < 10 mcmol/L (11-34) Creatine Kinase 156 U/L (26-192) Creatine Kinase MB (Mass) 1.6 ng/mL (0.0-3.6) Creatine Kinase MB Relative Index 1.0 % (0-4) Troponin I Quantitative < 0.017 ng/mL (0.000-0.055) < 0.017 ng/mL (0.000-0.055) < 0.017 ng/mL (0.000-0.055) Total Protein 7.8 g/dL (6.4-8.2) Albumin 3.9 g/dL (3.4-5.0) Albumin/Globulin Ratio 1.0 (1.0-1.7) Urine Collection Type U cath Urine Color Yellow Urine Clarity Clear Urine pH 6.5 Urine Specific [place] 1.020 Urine Protein Negative mg/dL (NEG-TRACE) Urine Glucose (UA) Negative mg/dL (NEG) Urine Ketones (Stick) Negative mg/dL (NEG) Urine Blood Negative (NEG) Urine Nitrite Negative (NEG) Urine Bilirubin Negative (NEG) Urine Urobilinogen Dipstick 1.0 mg/dL (0.2 mg/dL) Urine Leukocyte Esterase Small (NEG) Urine RBC Occ /HPF (0-2) Urine WBC 1-4 /HPF (0-4) Urine Squamous Epithelial Cells Few /LPF Urine Amorphous Sediment Present /HPF Urine Bacteria 0 /HPF (0-FEW) Urine Mucus Slight /LPF SG-[id number]-[id number]-Type Natriuretic Peptide 649 pg/mL (0-449) Images Images CT Head W/O Contrast: History: Pain status post fall Comparison: none Axial images were obtained without contrast. There is moderate diffuse atrophy. There is no mass effect, extraaxial fluid collections or hydrocephalus. There is no gross bleed. Mild to moderate, patchy periventricular and subcortical white matter hypoattenuation is seen. There is no focal loss of lyons-white matter distinction to suggest acute ischemia, i.e. stroke. Impression: No acute findings. End impression CT maxillofacial without contrast History: sinus infection Axial helical images of the face were obtained without contrast. Axial and coronal reconstruction was performed. The nasal septum is mostly midline. The ostiomeatal complexes are narrow but patent. The paranasal sinuses are clear. The visualized osseous structures appear intact. The orbits appear normal. There is a hematoma above the left orbit. Impression: Immature lobe of the left orbit. No fracture seen. End impression CT C-Spine without contrast: Clinical History: Pain status post fall Technique: Axial helical images of the cervical spine were obtained without contrast, axial coronal and sagittal reconstruction was performed. Findings: There is no loss of vertebral body stature. There is no prevertebral soft tissue swelling. The vertebral bodies are well aligned. There is minimal reversal of the normal cervical lordosis which can be positional or could be chronic. The C1-C2 relationship is normal. There is gross osteopenia which limits sensitivity for possible nondisplaced fracture. The visualized osseous survey. Intact. Evaluation of the central canal is limited without contrast. There is multiple posterior disc bulges resulting in flattening of the thecal sac. There does not appear to be gross flattening of the cervical cord. There is moderate narrowing of multiple neuroforamen. There is a 4 cm cystic lesion in the left lobe of the thyroid. Impression: 1. 4 cm cystic lesion in the left lobe of the thyroid. The patient should have a follow-up ultrasound thyroid as an outpatient. 2. Gross osteopenia could be secondary to osteoporosis. 3. No evidence of fracture or malalignment. Clinical correlation suggested. Assessment/Plan Assessment/Plan Impression: I am not picking up on any type of acute neurological issues such as stroke which would have to be bilateral, cervical radiculopathy/myelopathy, neuropathy. Her hands are stiff, probably on a musculoskeletal basis. She has generalized weakness with being 89 years old. Presyncope, no evidence that she had a seizure or even lost consciousness. She also has some dementia. Recommendations: MRI of the cervical spine and brain Plain films of the hands. Rehabilitation modalities. Further studies depending on these results. Thank you for letting me help of the patient's care. OXANA CHAU MD Jul 21, 2019 13:43
--- NOTE | 2019-07-21 13:45 | RAD ---
MRI Brain without contrast History: Hand weakness Technique: Multiplanar, multisequential noncontrast MR imaging was performed of the brain. Comparison: None Findings: There is a 0.5 cm focus of restricted diffusion of the right basal ganglia, associated mild T2 and FLAIR hyperintense signal. There is no restricted diffusion of the left hemisphere or posterior fossa. Ventricular size is within normal limits. There is mild to moderate fairly generalized supratentorial atrophy.There is no significant midline shift, intraaxial mass effect, or focal abnormal extra-axial fluid collection. There is a 1.4 cm transverse by 0.9 cm AP focus of extra-axial signal abnormality of the left frontal region, no contact of adjacent parenchyma. There is multifocal mild to moderate T2 and FLAIR hyperintense signal abnormality of the supratentorial parenchyma bilaterally. There is preservation of the major intracranial flow-voids at the skull base. The mastoid air cells are aerated. The cerebellar tonsils are normal in location. There is no significant abnormality of the pineal gland or pituitary gland. Paranasal sinuses are overall aerated. There is preserved marrow signal of the clivus. There has been lens surgery bilaterally, disconjugate gaze. Impression: 1. 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 2. Multifocal T2 and FLAIR hyperintense signal abnormality of the supratentorial parenchyma bilaterally is nonspecific, most commonly due to chronic microvascular ischemic disease in a patient this age. There is generalized supratentorial atrophy. 3. There is a focus of asymmetric extra-axial signal change in the left frontal region, possibly a small meningioma. Findings discussed with charge nurse Michelle at 07/21/2019 1:42 PM. FOR INTERNAL CODING PURPOSES RESULT CODE: (C) Electronically signed by: Tomer Friend MD (07/21/2019 1:43 PM) [id number]
--- NOTE | 2019-07-21 14:08 | NUR ---
Notified Dr. Reyes of the message received from Dr. Eddy, of a small recent infarct on right basal ganglia via phone.
[2019-07-21] MEDS: FERROUS SULFATE 325 MG TABLET. PO SCH (14:11)
[2019-07-21] MEDS: CALCIUM CARBONATE 500 MG TABLET PO SCH ×2 (14:12→18:05)
[2019-07-21] MEDS: DONEPEZIL HCL 5 MG TABLET. PO SCH (14:12)
--- NOTE | 2019-07-21 14:18 | RAD ---
MRI Cervical Spine Without Contrast History: Hand weakness, neck pain Technique: Multiplanar, multi sequential noncontrast MR imaging was performed of the cervical spine. Comparison: CT cervical spine exam 07/21/2019 Findings: There is some motion degradation. Cervical cord caliber is within normal limits without expansile signal abnormality, limited evaluation for subtle signal change due to motion artifact. Cervical vertebral body stature is overall maintained. There is mild reversal of the lordotic curvature centered near C5. There is minimal posterior subluxation C4 relative to C5, also grade 1 anterior spondylolisthesis C6-7 and to lesser degree at C7-T1 and T1-T2. There is fairly advanced C4-5 degenerative disc disease, to a somewhat lesser degree at C5-6 and C3-C4. There is nonspecific heterogeneity of marrow signal not associated with significant marrow edema. There is large T2 hyperintense lesion of the visualized left thyroid gland about 2.7 cm AP by 3 cm transverse by about 4.1 cm CC. C2-C3: There is buckling of the ligamentum flavum. Central canal is borderline about 10 mm. Neural foramina are adequate. C3-C4: There is minimal disc osteophyte complex. There is mild buckling of the ligamentum flavum. Central canal is adequate about 11 mm. Neural foramina are overall adequate. C4-C5: There is buckling of the ligamentum flavum. There is minimal disc osteophyte complex and bulge. Central canal is narrowed to about 7 mm. There is bilateral facet degenerative change. There is right uncovertebral degenerative change. Left neural foramen is adequate, [id number] narrowing of the right neural foramen. C5-C6: There is minimal disc osteophyte complex. There is buckling of the ligamentum flavum. Central canal is narrowed to about 7-8 mm. There is bilateral facet degenerative change greater on the left. There is mild uncovertebral degenerative change. There is mild superior narrowing of the left neural foramen, right neural foramen overall adequate. C6-C7: There is buckling of the ligamentum flavum. Central canal is minimally narrowed about 8 to 9 mm. There is bilateral facet degenerative change. Neural foramina are not significantly narrowed. C7-T1: Spinal canal is adequate. There is bilateral facet degenerative change. Neural foramina are not significantly narrowed. Impression: 1. There is spinal stenosis about 7 mm at C4-5 and to a somewhat lesser degree at C5-6 and minimally at C6-7 as described. There is rncf-[id number]-[id number] narrowing of the right C4-5 neural foramen, mild narrowing superiorly on the left at C5-6. There is multilevel facet degenerative change, mild abnormal alignment as stated. There is multilevel degenerative disc disease greatest at C4-5. 2. There is a large T2 hyperintense lesion of left thyroid gland better evaluated by ultrasound if clinically needed. Electronically signed by: Tomer Friend MD (07/21/2019 2:15 PM) [id number]
[2019-07-21] MEDS ORDERED: ASPIRIN RECTAL 300 MG SUPP. PR PRN (14:30)
[2019-07-21] MEDS ORDERED: ACETAMINOPHEN 650 MG SUPP.RECT. PR PRN (14:30)
[2019-07-21 15:02] VITALS: BP 126/87
--- NOTE | 2019-07-21 16:00 | RAD ---
HAND BILAT 2V History: Hand pain. Stiffness. Technique: 4 views right hand. Comparison: None. Findings: Advanced bilateral polyarticular DJD involving the distal phalangeal, proximal phalangeal and metacarpal phalangeal joints. Advanced first carpometacarpal and triscaphe DJD, left greater than right. Angulation of the third right proximal interphalangeal joint. No fracture. Impression: 1. Advanced bilateral polyarticular DJD. Electronically signed by: Reynold Paez DO (07/21/2019 3:57 PM) [facility]
--- NOTE | 2019-07-21 16:44 | RAD ---
EXAM: CAROTID DOPPLER SONOGRAM. HISTORY: Cerebrovascular accident. TECHNIQUE: Dougherty scale and color Doppler sonographic evaluation of the neck with spectral waveform analysis was performed and static images are submitted for review. FINDINGS: RIGHT: The peak systolic velocity within the common carotid artery is 52 cm/sec. The peak systolic velocity within the internal carotid artery is 102 cm/sec and the end diastolic velocity within the internal carotid artery is 34 cm/sec. The ICA/CCA ratio is 2.04. Grayscale images demonstrate no grayscale stenosis. LEFT: The peak systolic velocity within the common carotid artery is 82 cm/sec. The peak systolic velocity within the internal carotid artery is 81 cm/sec and the end diastolic velocity within the internal carotid artery is 29 cm/sec. The ICA/CCA ratio is 0.92. Grayscale images demonstrate no grayscale stenosis. There is antegrade flow within both vertebral arteries. IMPRESSION: 1. No evidence of hemodynamically significant stenosis. PQRS Compliance Statement - Stenosis calculations for CT, MR and conventional angiography are based upon measurement of the distal ICA diameter in accordance with the NASCET methodology. Stenosis calculations for carotid ultrasound studies are derived from validated velocity criteria which are known to correlate with the NASCET methodology. Electronically signed by: Krystal Gerber MD (07/21/2019 4:40 PM) [facility]
[2019-07-21] MEDS: ACETAMINOPHEN 325 MG TABLET. PO PRN (18:10)
[2019-07-21 19:14] VITALS: BP 157/67
[2019-07-21] MEDS ORDERED: NON FORMULARY ITEM (Melatonin 10 MG) PO SCH (21:00)
[2019-07-21] MEDS: CHOLECALCIFEROL (VITAMIN D3) 1,000 UNIT TABLET PO SCH (21:17)
[2019-07-21] MEDS: MELOXICAM 7.5 MG TABLET PO SCH (21:17)
--- NOTE | 2019-07-21 23:13 | NUR ---
Pt has continuously refused to wear tele. Rn put it on about 1999 during assessment, and at 2300 vital signs check, ART THERAPY CERTIFIED SUPERVISOR stated that pt had taken it out. have asked several time to put it back on, and pt continues to refuse stating that she wants to go upstairs back to her room. Will continue to monitor.
[2019-07-21 23:43] VITALS: BP 143/74
[2019-07-22] MEDS ORDERED: OLANZapine IM 10 MG VIAL. IM PRN (02:45)
--- NOTE | 2019-07-22 03:00 | NUR ---
Pt bed alarm started to go off and when RN and STEEL FABRICATOR went to check, pt was at foot of bed. Pt was very confused stating that it was a mistake and that she shouldn't be here. despite the RN explaining that she fell and hit her head and was here to evaluate and make sure everything was clear. Contacted consultant dietitian who prescribed Zyprexa IM as well as PO rapid disolve for agitation. Pt went to chair so that STEEL FABRICATOR could change the sheets. Placed chair alarm on. Will continue to monitor.
[2019-07-22 03:47] VITALS: BP 158/81
[2019-07-22 06:33] LABS: BASO # 0.1 x10^3/uL (0.0-0.2); BASO % 1 % (0-3); EOS # 0.1 x10^3/uL (0.0-0.7); EOS % 2 % (0-3); HEMATOCRIT 36.5 % (36.0-47.0); HEMOGLOBIN 11.7 g/dL (12.0-15.5); LYMPH # 1.7 x10^3/uL (1.0-4.8); LYMPH % 33 % (24-48); MEAN CORPUSCULAR HEMOGLOBIN 27 pg (25-35); MEAN CORPUSCULAR HGB CONC 32 g/dL (31-37); MEAN CORPUSCULAR VOLUME 85 fL (79-100); MONO # 0.4 x10^3/uL (0.0-1.1); MONO % 7 % (0-9); NEUT # 2.9 x10^3/uL (1.8-7.7); NEUT % 57 % (31-73); PLATELET COUNT 201 x10^3/uL (140-400); RED BLOOD COUNT 4.29 x10^6/uL (3.50-5.40); RED CELL DISTRIBUTION WIDTH 14.5 % (11.5-14.5); WHITE BLOOD COUNT 5.2 x10^3/uL (4.0-11.0)
[2019-07-22 06:45] LABS: ALBUMIN 3.7 g/dL (3.4-5.0); ALBUMIN/GLOBULIN RATIO 0.9 (1.0-1.7); CALCIUM 8.1 mg/dL (8.5-10.1); CREATININE 0.9 mg/dL (0.6-1.0); GFR 71.7; POTASSIUM 3.6 mmol/L (3.5-5.1); TOTAL BILIRUBIN 0.7 mg/dL (0.2-1.0)
[2019-07-22 06:46] LABS: CHOLESTEROL/HDL RATIO 5.2
[2019-07-22 07:00] VITALS: BP 164/68
[2019-07-22] MEDS: DONEPEZIL HCL 5 MG TABLET. PO SCH (09:39)
[2019-07-22] MEDS: ASPIRIN ENTERIC COATED 81 MG TABLET.DR. PO SCH (09:40)
[2019-07-22] MEDS: LEVOTHYROXINE 50 MCG TABLET PO SCH (09:40)
[2019-07-22] MEDS: CALCIUM CARBONATE 500 MG TABLET PO SCH ×2 (09:41→17:58)
[2019-07-22] MEDS: MELOXICAM 7.5 MG TABLET PO SCH ×2 (09:41→20:58)
[2019-07-22] MEDS: FERROUS SULFATE 325 MG TABLET. PO SCH (09:41)
[2019-07-22] MEDS: CHOLECALCIFEROL (VITAMIN D3) 1,000 UNIT TABLET PO SCH ×2 (09:41→20:58)
--- NOTE | 2019-07-22 09:59 | PDOC ---
[employer] PROGRESS NOTE Chief Complaint Chief Complaint Fall, syncopal episode. Details limited to dementia PAFIB; maintaining SR Chronic diastolic CHF; appears clinically compensated Dementia DJD Cervical Stenosis History of Present Illness History of Present Illness 07/22/2019 Pt was seen and examined. She was having an echo on examination. She reports no acute complaints on examination. Vitals/I&O Vitals/I&O: Vital Signs Date Time Temp Pulse Resp B/P (MAP) Pulse Ox O2 Delivery O2 Flow Rate FiO2 07/22/19 09:41 88 164/68 07/22/19 07:00 97.6 18 96 Room Air 97.6 I & O 07/21/19 07/21/19 07/22/19 14:59 22:59 06:59 Intake Total 1260 ml 100 ml 100 ml Balance 1260 ml 100 ml 100 ml Physical Exam General: Alert (to person only ), Cooperative, No acute distress, Other (not oriented to year, dementia) Heart: Regular rate, Normal S1, Normal S2, Other (3/6 systolic murmur ) Lungs: Clear Abdomen: Soft, No tenderness Extremities: No edema, Normal pulses Skin: No breakdown, No significant lesion Labs Labs: Laboratory Tests Test 07/22/19 06:00 White Blood Count 5.2 x10^3/uL (4.0-11.0) Red Blood Count 4.29 x10^6/uL (3.50-5.40) Hemoglobin 11.7 g/dL (12.0-15.5) Hematocrit 36.5 % (36.0-47.0) Mean Corpuscular Volume 85 fL (79-100) Mean Corpuscular Hemoglobin 27 pg (25-35) Mean Corpuscular Hemoglobin Concent 32 g/dL (31-37) Red Cell Distribution Width 14.5 % (11.5-14.5) Platelet Count 201 x10^3/uL (140-400) Neutrophils (%) (Auto) 57 % (31-73) Lymphocytes (%) (Auto) 33 % (24-48) Monocytes (%) (Auto) 7 % (0-9) Eosinophils (%) (Auto) 2 % (0-3) Basophils (%) (Auto) 1 % (0-3) Neutrophils # (Auto) 2.9 x10^3/uL (1.8-7.7) Lymphocytes # (Auto) 1.7 x10^3/uL (1.0-4.8) Monocytes # (Auto) 0.4 x10^3/uL (0.0-1.1) Eosinophils # (Auto) 0.1 x10^3/uL (0.0-0.7) Basophils # (Auto) 0.1 x10^3/uL (0.0-0.2) Sodium Level 143 mmol/L (136-145) Potassium Level 3.6 mmol/L (3.5-5.1) Chloride Level 108 mmol/L (98-107) Carbon Dioxide Level 27 mmol/L (21-32) Anion Gap 8 (6-14) Blood Urea Nitrogen 19 mg/dL (7-20) Creatinine 0.9 mg/dL (0.6-1.0) Estimated GFR (Cockcroft-Gault) 71.7 BUN/Creatinine Ratio 21 (6-20) Glucose Level 95 mg/dL (70-99) Calcium Level 8.1 mg/dL (8.5-10.1) Total Bilirubin 0.7 mg/dL (0.2-1.0) Aspartate Amino Transf (AST/SGOT) 21 U/L (15-37) Alanine Aminotransferase (ALT/SGPT) 16 U/L (14-59) Alkaline Phosphatase 64 U/L (46-116) Total Protein 8.0 g/dL (6.4-8.2) Albumin 3.7 g/dL (3.4-5.0) Albumin/Globulin Ratio 0.9 (1.0-1.7) Triglycerides Level 105 mg/dL (0-150) Cholesterol Level 274 mg/dL (0-200) LDL Cholesterol, Calculated 200 mg/dL (0-100) VLDL Cholesterol, Calculated 21 mg/dL (0-40) Non-HDL Cholesterol Calculated 221 mg/dL (0-129) HDL Cholesterol 53 mg/dL (40-60) Cholesterol/HDL Ratio 5.2 Review of Systems Review of Systems: Denies CP Denies SOB Denies N/V/D Admits hand pain Assessment and Plan Assessmemt and Plan Problems Medical Problems: (1) Facial contusion Status: Acute (2) Thyroid cyst Status: Acute (3) Weakness Status: Acute Fall, syncopal episode. Details limited to dementia PAFIB; maintaining SR Chronic diastolic CHF; appears clinically compensated Dementia DJD Cervical Stenosis Possible subacute vs acute stroke of the basal ganglia on MRI Plan: 1) Await further Cardiology and neurology recommendation 2) Initiated statin therapy [Atorvastatin 20mg] 3) PT/OT 4) DVT prophylaxis 5) Await results from transthoracic echo 6) Daily labs 7) Cardiac monitoring 8) Await snu evaluation Comment Review of Relevant I have reviewed the following items james (where applicable) has been applied. Medications: Current Medications Medications (Trade) Dose Ordered Sig/Branden Route PRN Reason Start Time Stop Time Status Last Admin Dose Admin Aspirin (Ecotrin) 81 mg DAILY PO 07/22/19 09:00 07/22/19 09:40 Vitamin D (Vitamin D3) 1,000 unit BID PO 07/21/19 21:00 07/22/19 09:41 Donepezil HCl (Aricept) 5 mg DAILY PO 07/21/19 11:00 07/22/19 09:39 Ferrous Sulfate (Feosol) 325 mg DAILY PO 07/21/19 11:00 07/22/19 09:41 Levothyroxine Sodium (Synthroid) 50 mcg DAILY07 PO 07/21/19 11:00 07/22/19 09:40 Meloxicam (Mobic) 7.5 mg BID PO 07/21/19 21:00 07/22/19 09:41 Calcium Carbonate/ Glycine (Oscal) 500 mg BIDAFTMEAL PO 07/21/19 13:00 07/22/19 09:41 Diltiazem HCl (Cardizem 24hr Cd) 120 mg DAILY PO 07/21/19 11:00 07/22/19 09:41 Acetaminophen (Tylenol) 650 mg PRN Q6HRS PRN PO TEMP > 100.4F, MILD PAIN 07/21/19 14:30 07/21/19 18:10 Olanzapine (ZyPREXA IM) 10 mg PRN BID PRN IM agitation 07/22/19 02:45 07/22/19 03:11 KIARA OLIVAREZ III DO Jul 22, 2019 09:59
[2019-07-22] MEDS: ACETAMINOPHEN 325 MG TABLET. PO PRN (10:45)
[2019-07-22 11:36] VITALS: BP 167/63
--- NOTE | 2019-07-22 11:55 | CARD ---
MR#: [id number] Date of Study: 07/22/2019 Ordering Physician: OXANA CHAU, Referring Physician: OXANA CHAU, Tech: Radha Martini APPROVED REPORT EXAM: Two-dimensional and M-mode echocardiogram with Doppler and color Doppler. Other Information Quality : AverageHR: 83bpm Technically limited study due to patient supine INDICATION CVA/TIA Atrial Fibrillation 2D DIMENSIONS RVDd3.2 (2.9-3.5cm)Left Atrium(2D)3.3 (1.6-4.0cm) IVSd1.2 (0.7-1.1cm)Aortic Root(2D)3.2 (2.0-3.7cm) LVDd4.5 (3.9-5.9cm)LVOT Diameter2.1 (1.8-2.4cm) PWd1.1 (0.7-1.1cm)LVDs3.5 (2.5-4.0cm) FS (%) 21.9 %SV40.7 ml LVEF(%)44.5 (>50%) Aortic Valve AoV Peak Sacha.296.1cm/sAoV VTI69.1cm AO Peak GR.35.1mmHgLVOT VTI 18.39cm AO Mean GR.21mmHg Mitral Valve MV E Rptkmpcm05.0cm/sMV DECEL [id number] MV A Xuzkexec26.6cm/sE/A Ratio0.9 TDI Lateral E' P. V6.44cm/sMedial E' P. V5.41cm/s E/Lateral E'13.0E/Medial E'15.5 Tricuspid Valve TR P. [id number]/sRAP [id number] TR Peak Gr.[id number] Pulmonary Vein S1 Ykrrcxge20.3cm/sS2 Ffsierks55.69cm/s D2 Imdesufe61.7cm/sPVa [id number] LEFT VENTRICLE The left ventricle is normal size. There is mild to moderate concentric left ventricular hypertrophy. The left ventricular systolic function is normal. The ejection fraction is estiamted at 55%. Wall mo tion consistent with conduction abnormality. Transmitral Doppler flow pattern is Grade I-abnormal rel axation pattern. RIGHT VENTRICLE The right ventricle is normal size. There is normal right ventricular wall thickness. The right ventr icular systolic function is normal. ATRIA The left atrium is borderline dilated. The right atrium size is normal. The interatrial septum is int act with no evidence for an atrial septal defect or patent foramen ovale as noted on 2-D or Doppler i maging. AORTIC VALVE The aortic valve is calcified but opens well. Doppler and Color Flow revealed trace aortic regurgitat ion. Mild to moderate aortic stenosis with mean pressure gradient of 21 mmHg. MITRAL VALVE The mitral valve is normal in structure and function. There is no evidence of mitral valve prolapse. There is no mitral valve stenosis. Doppler and Color-flow revealed trace mitral regurgitation. TRICUSPID VALVE The tricuspid valve is not well visualized. Doppler and Color Flow revealed trace tricuspid regurgita tion with an estimated PAP of 23 mmHg. There is no tricuspid valve stenosis. PULMONIC VALVE The pulmonic valve is not well visualized. Doppler and Color Flow revealed no pulmonic valvular regur gitation. GREAT VESSELS The aortic root is normal in size. The IVC is normal in size and collapses >50% with inspiration. PERICARDIAL EFFUSION There is no evidence of significant pericardial effusion. Critical Notification Critical Value: No <Conclusion> The left ventricular systolic function is normal. The ejection fraction is estiamted at 55%. Transmitral Doppler flow pattern is Grade I-abnormal relaxation pattern. Mild to moderate aortic stenosis with mean pressure gradient of 21 mmHg. Trace mitral regurgitation. Trace tricuspid regurgitation with an estimated PAP of 23 mmHg. There is no evidence of significant pericardial effusion. Signed by : Shashi Rader, Electronically Approved : 07/22/2019 11:55:28
--- NOTE | 2019-07-22 12:45 | PDOC ---
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 Small meningioma in left frontal region. Spinal stenosis about 7 mm at C4-5 and to a somewhat lesser degree at C5-6 and minimally at C6-7. [id number] narrowing of the right C4-5 neural foramen, mild narrowing superiorly on the left at C5-6. There is multilevel facet degenerative change, mild abnormal alignment. Multilevel degenerative disc disease greatest at C4-5. 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 Dementia. Hyperlipidemia on statin already, at her advanced age, not a candidate for high- dose statin Plan I consulted neurosurgery, doubt that she is a candidate for surgery. Rehabilitation modalities Continue aspirin and statin, blood pressure control Not safe for anticoagulation given dementia and gait disorder. Aim to return to [facility] in the next day or 2. Subjective Wonders why she is here and what we are doing. I answer her questions but she repeats them a few minutes later. Objective Vital Signs Date Time Temp Pulse Resp B/P (MAP) Pulse Ox O2 Delivery O2 Flow Rate FiO2 07/22/19 11:36 98.4 73 18 167/63 (97) 97 Room Air 98.4 Intake and Output 07/22/19 06:59 Intake Total 1460 ml Balance 1460 ml Intake Oral 1460 ml # Voids 6 PHYSICAL EXAM Alert. Oriented to place and person, not time, does not know why she is here and forgets explanations given to her just a few minutes before. PERRL. EOMI. CN: no focal findings. Muscle tone: normal. Muscle strength: 4/5, using hands better DTR: 2+ Plantar reflex: flexor Gait: not examined in bed. Sensory exam: no abnormal findings. No cerebellar signs elicited. Review of Relevant I have reviewed the following items james (where applicable) has been applied. Labs Laboratory Tests Test 07/21/19 02:40 07/21/19 03:28 07/21/19 06:15 07/21/19 08:50 White Blood Count 6.3 x10^3/uL (4.0-11.0) Red Blood Count 4.16 x10^6/uL (3.50-5.40) Hemoglobin 11.5 g/dL (12.0-15.5) Hematocrit 35.4 % (36.0-47.0) Mean Corpuscular Volume 85 fL (79-100) Mean Corpuscular Hemoglobin 28 pg (25-35) Mean Corpuscular Hemoglobin Concent 33 g/dL (31-37) Red Cell Distribution Width 14.6 % (11.5-14.5) Platelet Count 206 x10^3/uL (140-400) Neutrophils (%) (Auto) 64 % (31-73) Lymphocytes (%) (Auto) 26 % (24-48) Monocytes (%) (Auto) 8 % (0-9) Eosinophils (%) (Auto) 2 % (0-3) Basophils (%) (Auto) 1 % (0-3) Neutrophils # (Auto) 4.0 x10^3/uL (1.8-7.7) Lymphocytes # (Auto) 1.7 x10^3/uL (1.0-4.8) Monocytes # (Auto) 0.5 x10^3/uL (0.0-1.1) Eosinophils # (Auto) 0.1 x10^3/uL (0.0-0.7) Basophils # (Auto) 0.1 x10^3/uL (0.0-0.2) Prothrombin Time 13.0 SEC (11.7-14.0) Prothromb Time International Ratio 1.0 (0.8-1.1) Activated Partial Thromboplast Time 32 SEC (24-38) Sodium Level 144 mmol/L (136-145) Potassium Level 4.2 mmol/L (3.5-5.1) Chloride Level 106 mmol/L (98-107) Carbon Dioxide Level 25 mmol/L (21-32) Anion Gap 13 (6-14) Blood Urea Nitrogen 29 mg/dL (7-20) Creatinine 1.0 mg/dL (0.6-1.0) Estimated GFR (Cockcroft-Gault) 63.5 BUN/Creatinine Ratio 29 (6-20) Glucose Level 96 mg/dL (70-99) Lactic Acid Level 1.9 mmol/L (0.4-2.0) Calcium Level 8.4 mg/dL (8.5-10.1) Magnesium Level 2.5 mg/dL (1.8-2.4) Total Bilirubin 0.4 mg/dL (0.2-1.0) Aspartate Amino Transf (AST/SGOT) 19 U/L (15-37) Alanine Aminotransferase (ALT/SGPT) 17 U/L (14-59) Alkaline Phosphatase 66 U/L (46-116) Ammonia < 10 mcmol/L (11-34) Creatine Kinase 156 U/L (26-192) Creatine Kinase MB (Mass) 1.6 ng/mL (0.0-3.6) Creatine Kinase MB Relative Index 1.0 % (0-4) Troponin I Quantitative < 0.017 ng/mL (0.000-0.055) < 0.017 ng/mL (0.000-0.055) < 0.017 ng/mL (0.000-0.055) Total Protein 7.8 g/dL (6.4-8.2) Albumin 3.9 g/dL (3.4-5.0) Albumin/Globulin Ratio 1.0 (1.0-1.7) Urine Collection Type U cath Urine Color Yellow Urine Clarity Clear Urine pH 6.5 Urine Specific Rhodell 1.020 Urine Protein Negative mg/dL (NEG-TRACE) Urine Glucose (UA) Negative mg/dL (NEG) Urine Ketones (Stick) Negative mg/dL (NEG) Urine Blood Negative (NEG) Urine Nitrite Negative (NEG) Urine Bilirubin Negative (NEG) Urine Urobilinogen Dipstick 1.0 mg/dL (0.2 mg/dL) Urine Leukocyte Esterase Small (NEG) Urine RBC Occ /HPF (0-2) Urine WBC 1-4 /HPF (0-4) Urine Squamous Epithelial Cells Few /LPF Urine Amorphous Sediment Present /HPF Urine Bacteria 0 /HPF (0-FEW) Urine Mucus Slight /LPF OT-Esv-G-Type Natriuretic Peptide 649 pg/mL (0-449) Test 07/22/19 06:00 White Blood Count 5.2 x10^3/uL (4.0-11.0) Red Blood Count 4.29 x10^6/uL (3.50-5.40) Hemoglobin 11.7 g/dL (12.0-15.5) Hematocrit 36.5 % (36.0-47.0) Mean Corpuscular Volume 85 fL (79-100) Mean Corpuscular Hemoglobin 27 pg (25-35) Mean Corpuscular Hemoglobin Concent 32 g/dL (31-37) Red Cell Distribution Width 14.5 % (11.5-14.5) Platelet Count 201 x10^3/uL (140-400) Neutrophils (%) (Auto) 57 % (31-73) Lymphocytes (%) (Auto) 33 % (24-48) Monocytes (%) (Auto) 7 % (0-9) Eosinophils (%) (Auto) 2 % (0-3) Basophils (%) (Auto) 1 % (0-3) Neutrophils # (Auto) 2.9 x10^3/uL (1.8-7.7) Lymphocytes # (Auto) 1.7 x10^3/uL (1.0-4.8) Monocytes # (Auto) 0.4 x10^3/uL (0.0-1.1) Eosinophils # (Auto) 0.1 x10^3/uL (0.0-0.7) Basophils # (Auto) 0.1 x10^3/uL (0.0-0.2) Sodium Level 143 mmol/L (136-145) Potassium Level 3.6 mmol/L (3.5-5.1) Chloride Level 108 mmol/L (98-107) Carbon Dioxide Level 27 mmol/L (21-32) Anion Gap 8 (6-14) Blood Urea Nitrogen 19 mg/dL (7-20) Creatinine 0.9 mg/dL (0.6-1.0) Estimated GFR (Cockcroft-Gault) 71.7 BUN/Creatinine Ratio 21 (6-20) Glucose Level 95 mg/dL (70-99) Calcium Level 8.1 mg/dL (8.5-10.1) Total Bilirubin 0.7 mg/dL (0.2-1.0) Aspartate Amino Transf (AST/SGOT) 21 U/L (15-37) Alanine Aminotransferase (ALT/SGPT) 16 U/L (14-59) Alkaline Phosphatase 64 U/L (46-116) Total Protein 8.0 g/dL (6.4-8.2) Albumin 3.7 g/dL (3.4-5.0) Albumin/Globulin Ratio 0.9 (1.0-1.7) Triglycerides Level 105 mg/dL (0-150) Cholesterol Level 274 mg/dL (0-200) LDL Cholesterol, Calculated 200 mg/dL (0-100) VLDL Cholesterol, Calculated 21 mg/dL (0-40) Non-HDL Cholesterol Calculated 221 mg/dL (0-129) HDL Cholesterol 53 mg/dL (40-60) Cholesterol/HDL Ratio 5.2 Laboratory Tests Test 07/22/19 06:00 White Blood Count 5.2 x10^3/uL (4.0-11.0) Red Blood Count 4.29 x10^6/uL (3.50-5.40) Hemoglobin 11.7 g/dL (12.0-15.5) Hematocrit 36.5 % (36.0-47.0) Mean Corpuscular Volume 85 fL (79-100) Mean Corpuscular Hemoglobin 27 pg (25-35) Mean Corpuscular Hemoglobin Concent 32 g/dL (31-37) Red Cell Distribution Width 14.5 % (11.5-14.5) Platelet Count 201 x10^3/uL (140-400) Neutrophils (%) (Auto) 57 % (31-73) Lymphocytes (%) (Auto) 33 % (24-48) Monocytes (%) (Auto) 7 % (0-9) Eosinophils (%) (Auto) 2 % (0-3) Basophils (%) (Auto) 1 % (0-3) Neutrophils # (Auto) 2.9 x10^3/uL (1.8-7.7) Lymphocytes # (Auto) 1.7 x10^3/uL (1.0-4.8) Monocytes # (Auto) 0.4 x10^3/uL (0.0-1.1) Eosinophils # (Auto) 0.1 x10^3/uL (0.0-0.7) Basophils # (Auto) 0.1 x10^3/uL (0.0-0.2) Sodium Level 143 mmol/L (136-145) Potassium Level 3.6 mmol/L (3.5-5.1) Chloride Level 108 mmol/L (98-107) Carbon Dioxide Level 27 mmol/L (21-32) Anion Gap 8 (6-14) Blood Urea Nitrogen 19 mg/dL (7-20) Creatinine 0.9 mg/dL (0.6-1.0) Estimated GFR (Cockcroft-Gault) 71.7 BUN/Creatinine Ratio 21 (6-20) Glucose Level 95 mg/dL (70-99) Calcium Level 8.1 mg/dL (8.5-10.1) Total Bilirubin 0.7 mg/dL (0.2-1.0) Aspartate Amino Transf (AST/SGOT) 21 U/L (15-37) Alanine Aminotransferase (ALT/SGPT) 16 U/L (14-59) Alkaline Phosphatase 64 U/L (46-116) Total Protein 8.0 g/dL (6.4-8.2) Albumin 3.7 g/dL (3.4-5.0) Albumin/Globulin Ratio 0.9 (1.0-1.7) Triglycerides Level 105 mg/dL (0-150) Cholesterol Level 274 mg/dL (0-200) LDL Cholesterol, Calculated 200 mg/dL (0-100) VLDL Cholesterol, Calculated 21 mg/dL (0-40) Non-HDL Cholesterol Calculated 221 mg/dL (0-129) HDL Cholesterol 53 mg/dL (40-60) Cholesterol/HDL Ratio 5.2 Medications Current Medications Sodium Chloride 1,000 ml @ 1,000 mls/hr 1X ONCE IV Last administered on 07/21/19at 02:40; Start 07/21/19 at 02:30; Stop 07/21/19 at 03:29; Status DC Ondansetron HCl (Zofran) 4 mg PRN Q8HRS PRN IV NAUSEA/VOMITING; Start 07/21/19 at 03:15; Stop 07/22/19 at 03:14; Status DC Acetaminophen (Tylenol) 650 mg PRN Q8HRS PRN PO PAIN; Start 07/21/19 at 11:00; Stop 07/21/19 at 15:10; Status DC Aspirin (Ecotrin) 81 mg DAILY PO Last administered on 07/22/19at 09:40; Start 07/22/19 at 09:00 Vitamin D (Vitamin D3) 1,000 unit BID PO Last administered on 07/22/19at 09:41; Start 07/21/19 at 21:00 Donepezil HCl (Aricept) 5 mg DAILY PO Last administered on 07/22/19at 09:39; Start 07/21/19 at 11:00 Ferrous Sulfate (Feosol) 325 mg DAILY PO Last administered on 07/22/19 09:41; Start 07/21/19 at 11:00 Levothyroxine Sodium (Synthroid) 50 mcg DAILY07 PO Last administered on 07/22/19 09:40; Start 07/21/19 at 11:00 Meloxicam (Mobic) 7.5 mg BID PO Last administered on 07/22/19 09:41; Start 07/21/19 at 21:00 Calcium Carbonate/ Glycine (Oscal) 500 mg BIDAFTMEAL PO Last administered on 07/22/19 09:41; Start 07/21/19 at 13:00 Diltiazem HCl (Cardizem 24hr Cd) 120 mg DAILY PO Last administered on 07/22/19 09:41; Start 07/21/19 at 11:00 Non-Formulary Medication (Melatonin ) 10 mg HS PO ; Start 07/21/19 at 21:00; Status UNV Multi-Ingredient Ointment (Analgesic Carney) 1 kirstie PRN QID PRN TP MUSCLE PAIN; Start 07/21/19 at 11:15 Non-Formulary Medication ([tumeric] ) 500 mg DAILY PO ; Start 07/22/19 at 09:00; Status UNV Acetaminophen (Tylenol) 650 mg PRN Q6HRS PRN PO TEMP > 100.4F, MILD PAIN Last administered on 07/22/19at 10:45; Start 07/21/19 at 14:30 Acetaminophen (Tylenol Supp) 650 mg PRN Q4HRS PRN GA TEMP > 100.4F; Start 07/21/19 at 14:30 Aspirin (Aspirin Rectal Supp) 300 mg PRN DAILY PRN GA IF UNABLE TO TAKE PO; Start 07/21/19 at 14:30 Olanzapine (ZyPREXA IM) 10 mg PRN BID PRN IM agitation Last administered on 07/22/19at 03:11; Start 07/22/19 at 02:45 Olanzapine (ZyPREXA ZYDIS) 10 mg PRN BID PRN PO agitation; Start 07/22/19 at 02:45 Atorvastatin Calcium (Lipitor) 20 mg QHS PO ; Start 07/22/19 at 21:00 Active Scripts Active Reported [tumeric] 500 Mg PO DAILY Biofreeze (Menthol) 118 Ml Gel..ml. 1 Kirstie TP QIDPRN PRN 7 Days Tylenol (Acetaminophen) 325 Mg Tablet 650 Mg PO PRN Q8HRS PRN Melatonin 3 Mg Tablet 10 Mg PO HS Vitamin D3 (Cholecalciferol (Vitamin D3)) 1,000 Unit Tablet 1,000 Unit PO BID Meloxicam 7.5 Mg Tablet 1 Tab PO BID 30 Days Calcium Carbonate 300 Mg Tab.chew 600 Mg PO BID Levothyroxine Sodium 50 Mcg Tablet 1 Tab PO DAILY Ferrous Sulfate 325 Mg Tablet 1 Tab PO DAILY Donepezil Hcl 5 Mg Tablet 1 Tab PO DAILY Diltiazem Hcl Tablet (Diltiazem Hcl) 120 Mg Tablet 120 Mg PO DAILY Aspir-Low (Aspirin) 81 Mg Tablet.dr 1 Tab PO DAILY Vitals/I & O Vital Sign - Last 24 Hours 07/21/19 07/21/19 07/21/19 07/21/19 14:12 15:02 19:14 20:15 Temp 97.7 97.7 97.7 97.7 Pulse 83 59 84 Resp 18 18 B/P (MAP) 157/80 126/87 (100) 157/67 (97) Pulse Ox 98 95 O2 Delivery Room Air Room Air Room Air 07/21/19 07/22/19 07/22/19 07/22/19 23:43 03:47 07:00 09:41 Temp 97.9 97.5 97.6 97.9 97.5 97.6 Pulse 86 79 88 88 Resp 18 18 18 B/P (MAP) 143/74 (97) 158/81 (106) 164/68 (100) 164/68 Pulse Ox 99 91 96 O2 Delivery Room Air Room Air Room Air 07/22/19 11:36 Temp 98.4 98.4 Pulse 73 Resp 18 B/P (MAP) 167/63 (97) Pulse Ox 97 O2 Delivery Room Air Intake and Output 07/21/19 07/21/19 07/22/19 14:59 22:59 06:59 Intake Total 1260 ml 100 ml 100 ml Balance 1260 ml 100 ml 100 ml Images MRI Cervical Spine Without Contrast History: Hand weakness, neck pain Technique: Multiplanar, multi sequential noncontrast MR imaging was performed of the cervical spine. Comparison: CT cervical spine exam 07/21/2019 Findings: There is some motion degradation. Cervical cord caliber is within normal limits without expansile signal abnormality, limited evaluation for subtle signal change due to motion artifact. Cervical vertebral body stature is overall maintained. There is mild reversal of the lordotic curvature centered near C5. There is minimal posterior subluxation C4 relative to C5, also grade 1 anterior spondylolisthesis C6-7 and to lesser degree at C7-T1 and T1-T2. There is fairly advanced C4-5 degenerative disc disease, to a somewhat lesser degree at C5-6 and C3-C4. There is nonspecific heterogeneity of marrow signal not associated with significant marrow edema. There is large T2 hyperintense lesion of the visualized left thyroid gland about 2.7 cm AP by 3 cm transverse by about 4.1 cm CC. C2-C3: There is buckling of the ligamentum flavum. Central canal is borderline about 10 mm. Neural foramina are adequate. C3-C4: There is minimal disc osteophyte complex. There is mild buckling of the ligamentum flavum. Central canal is adequate about 11 mm. Neural foramina are overall adequate. C4-C5: There is buckling of the ligamentum flavum. There is minimal disc osteophyte complex and bulge. Central canal is narrowed to about 7 mm. There is bilateral facet degenerative change. There is right uncovertebral degenerative change. Left neural foramen is adequate, [id number] narrowing of the right neural foramen. C5-C6: There is minimal disc osteophyte complex. There is buckling of the ligamentum flavum. Central canal is narrowed to about 7-8 mm. There is bilateral facet degenerative change greater on the left. There is mild uncovertebral degenerative change. There is mild superior narrowing of the left neural foramen, right neural foramen overall adequate. C6-C7: There is buckling of the ligamentum flavum. Central canal is minimally narrowed about 8 to 9 mm. There is bilateral facet degenerative change. Neural foramina are not significantly narrowed. C7-T1: Spinal canal is adequate. There is bilateral facet degenerative change. Neural foramina are not significantly narrowed. Impression: 1. There is spinal stenosis about 7 mm at C4-5 and to a somewhat lesser degree at C5-6 and minimally at C6-7 as described. There is [id number] narrowing of the right C4-5 neural foramen, mild narrowing superiorly on the left at C5-6. There is multilevel facet degenerative change, mild abnormal alignment as stated. There is multilevel degenerative disc disease greatest at C4-5. 2. There is a large T2 hyperintense lesion of left thyroid gland better evaluated by ultrasound if clinically needed. MRI Brain without contrast History: Hand weakness Technique: Multiplanar, multisequential noncontrast MR imaging was performed of the brain. Comparison: None Findings: There is a 0.5 cm focus of restricted diffusion of the right basal ganglia, associated mild T2 and FLAIR hyperintense signal. There is no restricted diffusion of the left hemisphere or posterior fossa. Ventricular size is within normal limits. There is mild to moderate fairly generalized supratentorial atrophy.There is no significant midline shift, intraaxial mass effect, or focal abnormal extra-axial fluid collection. There is a 1.4 cm transverse by 0.9 cm AP focus of extra-axial signal abnormality of the left frontal region, no contact of adjacent parenchyma. There is multifocal mild to moderate T2 and FLAIR hyperintense signal abnormality of the supratentorial parenchyma bilaterally. There is preservation of the major intracranial flow-voids at the skull base. The mastoid air cells are aerated. The cerebellar tonsils are normal in location. There is no significant abnormality of the pineal gland or pituitary gland. Paranasal sinuses are overall aerated. There is preserved marrow signal of the clivus. There has been lens surgery bilaterally, disconjugate gaze. Impression: 1. 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 2. Multifocal T2 and FLAIR hyperintense signal abnormality of the supratentorial parenchyma bilaterally is nonspecific, most commonly due to chronic microvascular ischemic disease in a patient this age. There is generalized supratentorial atrophy. 3. There is a focus of asymmetric extra-axial signal change in the left frontal region, possibly a small meningioma. HAND BILAT 2V History: Hand pain. Stiffness. Technique: 4 views right hand. Comparison: None. Findings: Advanced bilateral polyarticular DJD involving the distal phalangeal, proximal phalangeal and metacarpal phalangeal joints. Advanced first carpometacarpal and triscaphe DJD, left greater than right. Angulation of the third right proximal interphalangeal joint. No fracture. Impression: 1. Advanced bilateral polyarticular DJD. CAROTID DOPPLER SONOGRAM. HISTORY: Cerebrovascular accident. TECHNIQUE: Dougherty scale and color Doppler sonographic evaluation of the neck with spectral waveform analysis was performed and static images are submitted for review. FINDINGS: RIGHT: The peak systolic velocity within the common carotid artery is 52 cm/sec. The peak systolic velocity within the internal carotid artery is 102 cm/sec and the end diastolic velocity within the internal carotid artery is 34 cm/sec. The ICA/CCA ratio is 2.04. Grayscale images demonstrate no grayscale stenosis. LEFT: The peak systolic velocity within the common carotid artery is 82 cm/sec. The peak systolic velocity within the internal carotid artery is 81 cm/sec and the end diastolic velocity within the internal carotid artery is 29 cm/sec. The ICA/CCA ratio is 0.92. Grayscale images demonstrate no grayscale stenosis. There is antegrade flow within both vertebral arteries. IMPRESSION: 1. No evidence of hemodynamically significant stenosis. Echocardiogram: LEFT VENTRICLE The left ventricle is normal size. There is mild to moderate concentric left ventricular hypertrophy. The left ventricular systolic function is normal. The ejection fraction is estiamted at 55%. Wall motion consistent with conduction abnormality. Transmitral Doppler flow pattern is Grade I-abnormal relaxation pattern. RIGHT VENTRICLE The right ventricle is normal size. There is normal right ventricular wall thickness. The right ventricular systolic function is normal. ATRIA The left atrium is borderline dilated. The right atrium size is normal. The interatrial septum is intact with no evidence for an atrial septal defect or patent foramen ovale as noted on 2-D or Doppler imaging. AORTIC VALVE The aortic valve is calcified but opens well. Doppler and Color Flow revealed trace aortic regurgitation. Mild to moderate aortic stenosis with mean pressure gradient of 21 mmHg. MITRAL VALVE The mitral valve is normal in structure and function. There is no evidence of mitral valve prolapse. There is no mitral valve stenosis. Doppler and Color-flow revealed trace mitral regurgitation. TRICUSPID VALVE The tricuspid valve is not well visualized. Doppler and Color Flow revealed trace tricuspid regurgitation with an estimated PAP of 23 mmHg. There is no tricuspid valve stenosis. PULMONIC VALVE The pulmonic valve is not well visualized. Doppler and Color Flow revealed no pulmonic valvular regurgitation. GREAT VESSELS The aortic root is normal in size. The IVC is normal in size and collapses >50% with inspiration. PERICARDIAL EFFUSION There is no evidence of significant pericardial effusion. Critical Notification Critical Value: No <Conclusion> The left ventricular systolic function is normal. The ejection fraction is estiamted at 55%. Transmitral Doppler flow pattern is Grade I-abnormal relaxation pattern. Mild to moderate aortic stenosis with mean pressure gradient of 21 mmHg. Trace mitral regurgitation. Trace tricuspid regurgitation with an estimated PAP of 23 mmHg. There is no evidence of significant pericardial effusion. OXANA CHAU MD Jul 22, 2019 12:45
--- NOTE | 2019-07-22 13:29 | PDOC ---
Provider Note Provider Note Patient seen and examined s/p fall c/o neck pain Cervical MRI with moderate stenosis at C4-5 would recommend conservative management she can f/u as OP as needed d/w patient and daughter ROLANDOALOK Pike MD Jul 22, 2019 13:29
--- NOTE | 2019-07-22 14:14 | PDOC ---
CARDIO Progress Notes Date and Time Date of Service 07/22/19 Time of Evaluation 1400 Subjective Subjective: No Chest Pain, No shortness of breath, Other (c/o arthritis ) Vitals Vitals Vital Signs Date Time Temp Pulse Resp B/P (MAP) Pulse Ox O2 Delivery O2 Flow Rate FiO2 07/22/19 11:36 98.4 73 18 167/63 (97) 97 Room Air 98.4 Weight Weight [ ] Input and Output Intake and Output Intake and Output 07/22/19 07:00 Intake Total 1460 ml Balance 1460 ml Intake Oral 1460 ml # Voids 6 Laboratory Labs Laboratory Tests Test 07/22/19 06:00 White Blood Count 5.2 x10^3/uL (4.0-11.0) Red Blood Count 4.29 x10^6/uL (3.50-5.40) Hemoglobin 11.7 g/dL (12.0-15.5) Hematocrit 36.5 % (36.0-47.0) Mean Corpuscular Volume 85 fL (79-100) Mean Corpuscular Hemoglobin 27 pg (25-35) Mean Corpuscular Hemoglobin Concent 32 g/dL (31-37) Red Cell Distribution Width 14.5 % (11.5-14.5) Platelet Count 201 x10^3/uL (140-400) Neutrophils (%) (Auto) 57 % (31-73) Lymphocytes (%) (Auto) 33 % (24-48) Monocytes (%) (Auto) 7 % (0-9) Eosinophils (%) (Auto) 2 % (0-3) Basophils (%) (Auto) 1 % (0-3) Neutrophils # (Auto) 2.9 x10^3/uL (1.8-7.7) Lymphocytes # (Auto) 1.7 x10^3/uL (1.0-4.8) Monocytes # (Auto) 0.4 x10^3/uL (0.0-1.1) Eosinophils # (Auto) 0.1 x10^3/uL (0.0-0.7) Basophils # (Auto) 0.1 x10^3/uL (0.0-0.2) Sodium Level 143 mmol/L (136-145) Potassium Level 3.6 mmol/L (3.5-5.1) Chloride Level 108 mmol/L (98-107) Carbon Dioxide Level 27 mmol/L (21-32) Anion Gap 8 (6-14) Blood Urea Nitrogen 19 mg/dL (7-20) Creatinine 0.9 mg/dL (0.6-1.0) Estimated GFR (Cockcroft-Gault) 71.7 BUN/Creatinine Ratio 21 (6-20) Glucose Level 95 mg/dL (70-99) Calcium Level 8.1 mg/dL (8.5-10.1) Total Bilirubin 0.7 mg/dL (0.2-1.0) Aspartate Amino Transf (AST/SGOT) 21 U/L (15-37) Alanine Aminotransferase (ALT/SGPT) 16 U/L (14-59) Alkaline Phosphatase 64 U/L (46-116) Total Protein 8.0 g/dL (6.4-8.2) Albumin 3.7 g/dL (3.4-5.0) Albumin/Globulin Ratio 0.9 (1.0-1.7) Triglycerides Level 105 mg/dL (0-150) Cholesterol Level 274 mg/dL (0-200) LDL Cholesterol, Calculated 200 mg/dL (0-100) VLDL Cholesterol, Calculated 21 mg/dL (0-40) Non-HDL Cholesterol Calculated 221 mg/dL (0-129) HDL Cholesterol 53 mg/dL (40-60) Cholesterol/HDL Ratio 5.2 Physical Exam HEENT: Neck Supple W Full Motion Chest: Symmetric LUNGS: Clear to Auscultation Heart: S1S2, RRR, murmurs (2/6 systolic murmur ) Extremities: No Edema Neurology: alert, follow commands, confused Assessment Assessment 1. Fall, syncopal episode. Details limited to dementia. No acute events on tele thus far 2. PAFIB; maintaining SR. No acute event on tele thus far. Echo with preserved LV systolic function as noted above 3. Acute/early subacute infarct of the right basal ganglia. Neurology following 4. , mild to moderate 5. Chronic diastolic CHF; appears clinically compensated. NT Pro BNP elevated, but insignificant based upon age adjustment. CXR without vascular congestion Recommendations ASA for stroke prevention. Unfortunately, is a poor candidate for OAC given dementia, fall risk Continue Cardizem for rate control Supportive care Follow neurology recommendations UBALDO YEAGER APRN Jul 22, 2019 14:14
--- NOTE | 2019-07-22 14:15 | NUR ---
SW consulted for SNU eval. Spoke with PT today and PT/OT recommends home health and family also would like pt to return back to [facility]. CYDNEY spoke with pt and pt's daughterClau phone: [phone] and discussed dc plan. Pt's daughter reported pt gets confused in new surrounding and does not think SNU will benefit pt. Pt usually independent with ADL's but gets assistance from staff at [facility]. Pt sometimes forgets to push her call light and family has been educating pt about calling for help. Pt also has medical alert she wears everyday. Pt's daughter believes Home health will benefit pt is agreeable to speak with Nurse navigator from [facility]. Discussed with nurse navigator. CYDNEY will continue to follow.
[2019-07-22] MEDS: HYDROcodone/APAP 5/325MG 1 TAB TABLET PO PRN ×2 (15:07→20:59)
[2019-07-22 15:21] VITALS: BP 121/61
[2019-07-22 19:25] VITALS: BP 132/58
[2019-07-22] MEDS ORDERED: ATORVASTATIN CALCIUM 20 MG TABLET PO SCH (21:00)
[2019-07-22 23:25] VITALS: BP 129/62
[2019-07-23 03:25] VITALS: BP 129/60
[2019-07-23 06:35] LABS: ALBUMIN/GLOBULIN RATIO 0.8 (1.0-1.7); CALCIUM 7.8 mg/dL (8.5-10.1); GFR 63.5; POTASSIUM 3.8 mmol/L (3.5-5.1); TOTAL BILIRUBIN 0.4 mg/dL (0.2-1.0); TOTAL PROTEIN 6.6 g/dL (6.4-8.2)
[2019-07-23 06:45] LABS: BASO # 0.1 x10^3/uL (0.0-0.2); BASO % 1 % (0-3); EOS # 0.1 x10^3/uL (0.0-0.7); EOS % 2 % (0-3); HEMATOCRIT 31.3 % (36.0-47.0); HEMOGLOBIN 10.1 g/dL (12.0-15.5); LYMPH # 1.9 x10^3/uL (1.0-4.8); LYMPH % 45 % (24-48); MEAN CORPUSCULAR HEMOGLOBIN 28 pg (25-35); MEAN CORPUSCULAR HGB CONC 32 g/dL (31-37); MEAN CORPUSCULAR VOLUME 85 fL (79-100); MONO # 0.3 x10^3/uL (0.0-1.1); MONO % 7 % (0-9); NEUT # 1.9 x10^3/uL (1.8-7.7); NEUT % 45 % (31-73); PLATELET COUNT 184 x10^3/uL (140-400); RED BLOOD COUNT 3.67 x10^6/uL (3.50-5.40); RED CELL DISTRIBUTION WIDTH 14.3 % (11.5-14.5); WHITE BLOOD COUNT 4.2 x10^3/uL (4.0-11.0)
[2019-07-23 07:00] VITALS: BP_SYST 121; BP_SYST 144; BP_DIAS 46; BP_DIAS 73
[2019-07-23 08:41] VITALS: BP 144/73
[2019-07-23] MEDS: DONEPEZIL HCL 5 MG TABLET. PO SCH (10:46)
[2019-07-23] MEDS: CALCIUM CARBONATE 500 MG TABLET PO SCH (10:46)
[2019-07-23] MEDS: MELOXICAM 7.5 MG TABLET PO SCH (10:46)
[2019-07-23] MEDS: LEVOTHYROXINE 50 MCG TABLET PO SCH (10:47)
[2019-07-23] MEDS: FERROUS SULFATE 325 MG TABLET. PO SCH (10:47)
[2019-07-23] MEDS: ASPIRIN ENTERIC COATED 81 MG TABLET.DR. PO SCH (10:48)
[2019-07-23] MEDS: CHOLECALCIFEROL (VITAMIN D3) 1,000 UNIT TABLET PO SCH (10:48)
[2019-07-23] MEDS: HYDROcodone/APAP 5/325MG 1 TAB TABLET PO PRN (10:52)
[2019-07-23 11:00] VITALS: BP 103/67
--- NOTE | 2019-07-23 11:14 | SNU/HH DC ---
DISCHARGE WITH HOME HEALTH DISCHARGE INFORMATION: Final Diagnosis: Problems Medical Problems: (1) Facial contusion Status: Acute (2) Thyroid cyst Status: Acute (3) Weakness Status: Acute Condition on Discharge: Stable CODE STATUS: Code Status: Full HOME HEALTH: Face to Face: I certify this patient is under my care and that I, or a nurse practitioner or physician's assistant general manager working with me, had a face to face encounter that meets the physician face to face encounter requirements with this patient on []. Medical Complications: Dementia, DJD, Falls RN For Eval/Treatment: Yes Physical Therapy For: Evalulation/Treatment Occupational Therapy For: Evaluation/Treatment Home Health Aide For: Self-care DIAL PAINTER For: Community Resources Pt Meets Homebound Status: Poor coordination w/ amb. CERTIFICATION STATEMENT: Certification Statement: Certification Statement: Based on the above finding, I certify that this patient is confined to the home and needs intermittent fpc care, physical therapy and/or speech therapy, or continues to need occupational therapy.~ This patient is under my care, and I have initiated the establishment of the plan of care.~ This patient will be followed by myself or a community physician who will periodically review the plan of care. Home Meds Reported Medications [tumeric] No Conflict Check, 500 MG PO DAILY for supplement/pain 07/21/19 Menthol (BIOFREEZE) 118 Ml Gel..ml., 1 HAZEL TP QIDPRN PRN for PAIN for 7 Days, #118 ML 0 Refills 07/21/19 Acetaminophen (TYLENOL) 325 Mg Tablet, 650 MG PO PRN Q8HRS PRN for PAIN, TAB 07/21/19 Melatonin (MELATONIN) 3 Mg Tablet, 10 MG PO HS for insomnia, TAB 07/21/19 Cholecalciferol (Vitamin D3) (VITAMIN D3) 1,000 Unit Tablet, 1000 UNIT PO BID for supplement, TAB 07/21/19 Meloxicam (MELOXICAM) 7.5 Mg Tablet, 1 TAB PO BID for osteiarthritis for 30 Days, #60 TAB 0 Refills 07/21/19 Calcium Carbonate (Calcium Carbonate) 300 Mg Tab.chew, 600 MG PO BID for supplement, TAB.CHEW 07/21/19 Levothyroxine Sodium (LEVOTHYROXINE SODIUM) 50 Mcg Tablet, 1 TAB PO DAILY for thyroid, #30 TAB 5 Refills 10/28/19 Ferrous Sulfate (FERROUS SULFATE) 325 Mg Tablet, 1 TAB PO DAILY for supplement, #30 TAB 3 Refills 07/21/19 Donepezil Hcl (DONEPEZIL HCL) 5 Mg Tablet, 1 TAB PO DAILY for dementia, #30 TAB 5 Refills 07/21/19 Diltiazem Hcl (DILTIAZEM HCL TABLET) 120 Mg Tablet, 120 MG PO DAILY for FOR HYPERTENSION, #30 TAB 0 Refills 07/21/19 Aspirin (ASPIR-LOW) 81 Mg Tablet., 1 TAB PO DAILY for prophylaxis, #30 TAB 3 Refills 07/21/19 KIARA OLIVAREZ III DO Jul 23, 2019 11:14
--- NOTE | 2019-07-23 11:39 | PDOC ---
[employer] PROGRESS NOTE Chief Complaint Chief Complaint Fall, syncopal episode. Details limited to dementia PAFIB; maintaining SR Chronic diastolic CHF; appears clinically compensated Dementia DJD Cervical Stenosis History of Present Illness History of Present Illness 07/23/2019 Pt seen and examined. Pt still complains of a hand tremor. Reports that she is ready for discharge if we are ready to clear her for discharge. 07/22/2019 Pt was seen and examined. She was having an echo on examination. She reports no acute complaints on examination. Vitals/I&O Vitals/I&O: Vital Signs Date Time Temp Pulse Resp B/P (MAP) Pulse Ox O2 Delivery O2 Flow Rate FiO2 07/23/19 10:52 94 Room Air 07/23/19 10:47 89 144/73 07/23/19 08:41 97.9 20 97.9 I & O 07/22/19 07/22/19 07/23/19 15:00 23:00 07:00 Intake Total 360 ml 600 ml Output Total 1 ml Balance 359 ml 600 ml Physical Exam General: Alert (to person only ), Cooperative, No acute distress, Other (not oriented to year, dementia) Heart: Regular rate, Other (3/6 systolic murmur ) Lungs: Clear Abdomen: Soft, No tenderness Extremities: No edema, Normal pulses Skin: No breakdown, No significant lesion Labs Labs: Laboratory Tests Test 07/23/19 04:12 White Blood Count 4.2 x10^3/uL (4.0-11.0) Red Blood Count 3.67 x10^6/uL (3.50-5.40) Hemoglobin 10.1 g/dL (12.0-15.5) Hematocrit 31.3 % (36.0-47.0) Mean Corpuscular Volume 85 fL (79-100) Mean Corpuscular Hemoglobin 28 pg (25-35) Mean Corpuscular Hemoglobin Concent 32 g/dL (31-37) Red Cell Distribution Width 14.3 % (11.5-14.5) Platelet Count 184 x10^3/uL (140-400) Neutrophils (%) (Auto) 45 % (31-73) Lymphocytes (%) (Auto) 45 % (24-48) Monocytes (%) (Auto) 7 % (0-9) Eosinophils (%) (Auto) 2 % (0-3) Basophils (%) (Auto) 1 % (0-3) Neutrophils # (Auto) 1.9 x10^3/uL (1.8-7.7) Lymphocytes # (Auto) 1.9 x10^3/uL (1.0-4.8) Monocytes # (Auto) 0.3 x10^3/uL (0.0-1.1) Eosinophils # (Auto) 0.1 x10^3/uL (0.0-0.7) Basophils # (Auto) 0.1 x10^3/uL (0.0-0.2) Sodium Level 143 mmol/L (136-145) Potassium Level 3.8 mmol/L (3.5-5.1) Chloride Level 106 mmol/L (98-107) Carbon Dioxide Level 29 mmol/L (21-32) Anion Gap 8 (6-14) Blood Urea Nitrogen 25 mg/dL (7-20) Creatinine 1.0 mg/dL (0.6-1.0) Estimated GFR (Cockcroft-Gault) 63.5 BUN/Creatinine Ratio 25 (6-20) Glucose Level 78 mg/dL (70-99) Calcium Level 7.8 mg/dL (8.5-10.1) Total Bilirubin 0.4 mg/dL (0.2-1.0) Aspartate Amino Transf (AST/SGOT) 18 U/L (15-37) Alanine Aminotransferase (ALT/SGPT) 14 U/L (14-59) Alkaline Phosphatase 52 U/L (46-116) Total Protein 6.6 g/dL (6.4-8.2) Albumin 3.0 g/dL (3.4-5.0) Albumin/Globulin Ratio 0.8 (1.0-1.7) Review of Systems Review of Systems: Denies CP. Denies SOB. Denies N/V/D. Assessment and Plan Assessmemt and Plan Problems Medical Problems: (1) Facial contusion Status: Acute (2) Thyroid cyst Status: Acute (3) Weakness Status: Acute Fall, syncopal episode. Details limited to dementia PAFIB; maintaining SR Chronic diastolic CHF; appears clinically compensated Dementia DJD Cervical Stenosis Plan: 1) Plan to contact [facility] with [facility] 2) Recommend outpatient neurology follow up and rehab 3) DVT prophylaxis 4) PT/OT 5) Full code Comment Review of Relevant I have reviewed the following items james (where applicable) has been applied. Medications: Current Medications Medications (Trade) Dose Ordered Sig/Branden Route PRN Reason Start Time Stop Time Status Last Admin Dose Admin Atorvastatin Calcium (Lipitor) 20 mg QHS PO 07/22/19 21:00 07/22/19 20:58 Acetaminophen/ Hydrocodone Bitart (Lortab 5/325) 1 tab PRN Q4HRS PRN PO PAIN 07/22/19 14:45 07/23/19 10:52 KIARA OLIVAREZ III DO Jul 23, 2019 11:39
--- NOTE | 2019-07-23 11:50 | PDOC ---
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 Small meningioma in left frontal region. Spinal stenosis about 7 mm at C4-5 and to a somewhat lesser degree at C5-6 and minimally at C6-7. Fosm-oj-fydotpiy narrowing of the right C4-5 neural foramen, mild narrowing superiorly on the left at C5-6. There is multilevel facet degenerative change, mild abnormal alignment. Multilevel degenerative disc disease greatest at C4-5. 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 Dementia. Hyperlipidemia on statin already, at her advanced age, not a candidate for high- dose statin Plan Neurosurgery consult appreciated, not a candidate for surgery. Rehabilitation modalities Continue aspirin and statin, blood pressure control Not safe for anticoagulation given dementia and gait disorder. Okay to return to long-term Discussed with Dr. Hernandez Subjective No complaints Objective Vital Signs Date Time Temp Pulse Resp B/P (MAP) Pulse Ox O2 Delivery O2 Flow Rate FiO2 07/23/19 10:52 94 Room Air 07/23/19 10:47 89 144/73 07/23/19 08:41 97.9 20 97.9 Intake and Output 07/23/19 07:00 Intake Total 960 ml Output Total 1 ml Balance 959 ml Intake Oral 960 ml Output Urine Total 1 ml # Voids 4 PHYSICAL EXAM Alert. Oriented to place and person, not time PERRL. EOMI. CN: no focal findings. Muscle tone: normal. Muscle strength: 4/5, using hands better DTR: 2+ Plantar reflex: flexor Gait: not examined in bed. Sensory exam: no abnormal findings. No cerebellar signs elicited. Review of Relevant I have reviewed the following items james (where applicable) has been applied. Labs Laboratory Tests Test 07/22/19 06:00 07/23/19 04:12 White Blood Count 5.2 x10^3/uL (4.0-11.0) 4.2 x10^3/uL (4.0-11.0) Red Blood Count 4.29 x10^6/uL (3.50-5.40) 3.67 x10^6/uL (3.50-5.40) Hemoglobin 11.7 g/dL (12.0-15.5) 10.1 g/dL (12.0-15.5) Hematocrit 36.5 % (36.0-47.0) 31.3 % (36.0-47.0) Mean Corpuscular Volume 85 fL (79-100) 85 fL (79-100) Mean Corpuscular Hemoglobin 27 pg (25-35) 28 pg (25-35) Mean Corpuscular Hemoglobin Concent 32 g/dL (31-37) 32 g/dL (31-37) Red Cell Distribution Width 14.5 % (11.5-14.5) 14.3 % (11.5-14.5) Platelet Count 201 x10^3/uL (140-400) 184 x10^3/uL (140-400) Neutrophils (%) (Auto) 57 % (31-73) 45 % (31-73) Lymphocytes (%) (Auto) 33 % (24-48) 45 % (24-48) Monocytes (%) (Auto) 7 % (0-9) 7 % (0-9) Eosinophils (%) (Auto) 2 % (0-3) 2 % (0-3) Basophils (%) (Auto) 1 % (0-3) 1 % (0-3) Neutrophils # (Auto) 2.9 x10^3/uL (1.8-7.7) 1.9 x10^3/uL (1.8-7.7) Lymphocytes # (Auto) 1.7 x10^3/uL (1.0-4.8) 1.9 x10^3/uL (1.0-4.8) Monocytes # (Auto) 0.4 x10^3/uL (0.0-1.1) 0.3 x10^3/uL (0.0-1.1) Eosinophils # (Auto) 0.1 x10^3/uL (0.0-0.7) 0.1 x10^3/uL (0.0-0.7) Basophils # (Auto) 0.1 x10^3/uL (0.0-0.2) 0.1 x10^3/uL (0.0-0.2) Sodium Level 143 mmol/L (136-145) 143 mmol/L (136-145) Potassium Level 3.6 mmol/L (3.5-5.1) 3.8 mmol/L (3.5-5.1) Chloride Level 108 mmol/L (98-107) 106 mmol/L (98-107) Carbon Dioxide Level 27 mmol/L (21-32) 29 mmol/L (21-32) Anion Gap 8 (6-14) 8 (6-14) Blood Urea Nitrogen 19 mg/dL (7-20) 25 mg/dL (7-20) Creatinine 0.9 mg/dL (0.6-1.0) 1.0 mg/dL (0.6-1.0) Estimated GFR (Cockcroft-Gault) 71.7 63.5 BUN/Creatinine Ratio 21 (6-20) 25 (6-20) Glucose Level 95 mg/dL (70-99) 78 mg/dL (70-99) Calcium Level 8.1 mg/dL (8.5-10.1) 7.8 mg/dL (8.5-10.1) Total Bilirubin 0.7 mg/dL (0.2-1.0) 0.4 mg/dL (0.2-1.0) Aspartate Amino Transf (AST/SGOT) 21 U/L (15-37) 18 U/L (15-37) Alanine Aminotransferase (ALT/SGPT) 16 U/L (14-59) 14 U/L (14-59) Alkaline Phosphatase 64 U/L (46-116) 52 U/L (46-116) Total Protein 8.0 g/dL (6.4-8.2) 6.6 g/dL (6.4-8.2) Albumin 3.7 g/dL (3.4-5.0) 3.0 g/dL (3.4-5.0) Albumin/Globulin Ratio 0.9 (1.0-1.7) 0.8 (1.0-1.7) Triglycerides Level 105 mg/dL (0-150) Cholesterol Level 274 mg/dL (0-200) LDL Cholesterol, Calculated 200 mg/dL (0-100) VLDL Cholesterol, Calculated 21 mg/dL (0-40) Non-HDL Cholesterol Calculated 221 mg/dL (0-129) HDL Cholesterol 53 mg/dL (40-60) Cholesterol/HDL Ratio 5.2 Laboratory Tests Test 07/23/19 04:12 White Blood Count 4.2 x10^3/uL (4.0-11.0) Red Blood Count 3.67 x10^6/uL (3.50-5.40) Hemoglobin 10.1 g/dL (12.0-15.5) Hematocrit 31.3 % (36.0-47.0) Mean Corpuscular Volume 85 fL (79-100) Mean Corpuscular Hemoglobin 28 pg (25-35) Mean Corpuscular Hemoglobin Concent 32 g/dL (31-37) Red Cell Distribution Width 14.3 % (11.5-14.5) Platelet Count 184 x10^3/uL (140-400) Neutrophils (%) (Auto) 45 % (31-73) Lymphocytes (%) (Auto) 45 % (24-48) Monocytes (%) (Auto) 7 % (0-9) Eosinophils (%) (Auto) 2 % (0-3) Basophils (%) (Auto) 1 % (0-3) Neutrophils # (Auto) 1.9 x10^3/uL (1.8-7.7) Lymphocytes # (Auto) 1.9 x10^3/uL (1.0-4.8) Monocytes # (Auto) 0.3 x10^3/uL (0.0-1.1) Eosinophils # (Auto) 0.1 x10^3/uL (0.0-0.7) Basophils # (Auto) 0.1 x10^3/uL (0.0-0.2) Sodium Level 143 mmol/L (136-145) Potassium Level 3.8 mmol/L (3.5-5.1) Chloride Level 106 mmol/L (98-107) Carbon Dioxide Level 29 mmol/L (21-32) Anion Gap 8 (6-14) Blood Urea Nitrogen 25 mg/dL (7-20) Creatinine 1.0 mg/dL (0.6-1.0) Estimated GFR (Cockcroft-Gault) 63.5 BUN/Creatinine Ratio 25 (6-20) Glucose Level 78 mg/dL (70-99) Calcium Level 7.8 mg/dL (8.5-10.1) Total Bilirubin 0.4 mg/dL (0.2-1.0) Aspartate Amino Transf (AST/SGOT) 18 U/L (15-37) Alanine Aminotransferase (ALT/SGPT) 14 U/L (14-59) Alkaline Phosphatase 52 U/L (46-116) Total Protein 6.6 g/dL (6.4-8.2) Albumin 3.0 g/dL (3.4-5.0) Albumin/Globulin Ratio 0.8 (1.0-1.7) Microbiology 07/21/19 Urine Culture - Final, Complete 07/21/19 Urine Culture Result 1 (DAVE) - Final, Complete Medications Current Medications Sodium Chloride 1,000 ml @ 1,000 mls/hr 1X ONCE IV Last administered on 07/21/19at 02:40; Start 07/21/19 at 02:30; Stop 07/21/19 at 03:29; Status DC Ondansetron HCl (Zofran) 4 mg PRN Q8HRS PRN IV NAUSEA/VOMITING; Start 07/21/19 at 03:15; Stop 07/22/19 at 03:14; Status DC Acetaminophen (Tylenol) 650 mg PRN Q8HRS PRN PO PAIN; Start 07/21/19 at 11:00; Stop 07/21/19 at 15:10; Status DC Aspirin (Ecotrin) 81 mg DAILY PO Last administered on 07/23/19at 10:48; Start 07/22/19 at 09:00 Vitamin D (Vitamin D3) 1,000 unit BID PO Last administered on 07/23/19at 10:48; Start 07/21/19 at 21:00 Donepezil HCl (Aricept) 5 mg DAILY PO Last administered on 07/23/19at 10:46; Start 07/21/19 at 11:00 Ferrous Sulfate (Feosol) 325 mg DAILY PO Last administered on 07/23/19 10:47; Start 07/21/19 at 11:00 Levothyroxine Sodium (Synthroid) 50 mcg DAILY07 PO Last administered on 07/23/19 10:47; Start 07/21/19 at 11:00 Meloxicam (Mobic) 7.5 mg BID PO Last administered on 07/23/19at 10:46; Start 1 at 21:00 Calcium Carbonate/ Glycine (Oscal) 500 mg BIDAFTMEAL PO Last administered on 07/23/19at 10:46; Start 07/21/19 at 13:00 Diltiazem HCl (Cardizem 24hr Cd) 120 mg DAILY PO Last administered on 07/23/19at 10:47; Start 07/21/19 at 11:00 Non-Formulary Medication (Melatonin ) 10 mg HS PO ; Start 07/21/19 at 21:00; Status UNV Multi-Ingredient Ointment (Analgesic [place]) 1 kirstie PRN QID PRN TP MUSCLE PAIN; Start 07/21/19 at 11:15 Non-Formulary Medication ([tumeric] ) 500 mg DAILY PO ; Start 07/22/19 at 09:00; Status UNV Acetaminophen (Tylenol) 650 mg PRN Q6HRS PRN PO TEMP > 100.4F, MILD PAIN Last administered on 07/22/19at 10:45; Start 07/21/19 at 14:30 Acetaminophen (Tylenol Supp) 650 mg PRN Q4HRS PRN NM TEMP > 100.4F; Start 07/21/19 at 14:30 Aspirin (Aspirin Rectal Supp) 300 mg PRN DAILY PRN NM IF UNABLE TO TAKE PO; Start 07/21/19 at 14:30 Olanzapine (ZyPREXA IM) 10 mg PRN BID PRN IM agitation Last administered on 07/22/19at 03:11; Start 07/22/19 at 02:45 Olanzapine (ZyPREXA ZYDIS) 10 mg PRN BID PRN PO agitation; Start 07/22/19 at 02:45 Atorvastatin Calcium (Lipitor) 20 mg QHS PO Last administered on 07/22/19at 20:58; Start 07/22/19 at 21:00 Acetaminophen/ Hydrocodone Bitart (Lortab 5/325) 1 tab PRN Q4HRS PRN PO PAIN Last administered on 07/23/19at 10:52; Start 07/22/19 at 14:45 Active Scripts Active Reported [tumeric] 500 Mg PO DAILY Biofreeze (Menthol) 118 Ml Gel..ml. 1 Kirstie TP QIDPRN PRN 7 Days Tylenol (Acetaminophen) 325 Mg Tablet 650 Mg PO PRN Q8HRS PRN Melatonin 3 Mg Tablet 10 Mg PO HS Vitamin D3 (Cholecalciferol (Vitamin D3)) 1,000 Unit Tablet 1,000 Unit PO BID Meloxicam 7.5 Mg Tablet 1 Tab PO BID 30 Days Calcium Carbonate 300 Mg Tab.chew 600 Mg PO BID Levothyroxine Sodium 50 Mcg Tablet 1 Tab PO DAILY Ferrous Sulfate 325 Mg Tablet 1 Tab PO DAILY Donepezil Hcl 5 Mg Tablet 1 Tab PO DAILY Diltiazem Hcl Tablet (Diltiazem Hcl) 120 Mg Tablet 120 Mg PO DAILY Aspir-Low (Aspirin) 81 Mg Tablet.dr 1 Tab PO DAILY Vitals/I & O Vital Sign - Last 24 Hours 07/22/19 07/22/19 07/22/19 07/22/19 15:07 15:21 16:25 19:25 Temp 97.9 97.6 97.9 97.6 Pulse 71 72 Resp 18 17 B/P (MAP) 121/61 (81) 132/58 (82) Pulse Ox 97 99 99 96 O2 Delivery Room Air Room Air Room Air Room Air 07/22/19 07/22/19 07/22/19 07/22/19 20:10 20:59 22:02 23:25 Temp 97.5 97.5 Pulse 71 Resp 17 B/P (MAP) 129/62 (84) Pulse Ox 94 O2 Delivery Room Air Room Air Room Air Room Air 07/23/19 07/23/19 07/23/19 07/23/19 03:25 07:00 08:41 10:47 Temp 97.4 97.9 97.9 97.4 97.9 97.9 Pulse 71 89 89 89 Resp 17 20 20 B/P (MAP) 129/60 (83) 144/73 (96) 144/73 (96) 144/73 Pulse Ox 95 94 94 O2 Delivery Room Air Room Air Room Air 07/23/19 10:52 Pulse Ox 94 O2 Delivery Room Air Intake and Output 0 07/22/19 07/22/19 07/23/19 15:00 23:00 07:00 Intake Total 360 ml 600 ml Output Total 1 ml Balance 359 ml 600 ml OXANA CHAU MD Jul 23, 2019 11:50
--- NOTE | 2019-07-23 12:12 | NUR ---
CYDNEY following pt. CYDNEY spoke with Pt's nurse, Jaycee at [facility] and informed her pt is discharging today. Jaycee stated RN does not need to report and requested records to be faxed. CYDNEY also faxed records/orders to and [facility]. Spoke with pt's son and he is able to take pt back to [facility] around [id number]. Pt aware and agreeable with dc plan. Discussed with RN.
--- NOTE | 2019-07-23 15:07 | NUR ---
Pt discharged to home with Home Health. Discharge teaching done with Pt and family. Pt taken out by wheelchair with transportation provided by family.
--- NOTE | 2019-07-24 09:18 | DS ---
DATE OF DISCHARGE: 07/23/2019 ADMISSION DIAGNOSES: Weakness, fall and facial contusion. DISCHARGE DIAGNOSES: Resolving fall, resolving facial contusion, arthritis, degenerative joint disease of the neck and small basal ganglia stroke. HOSPITAL COURSE: The patient is a pleasant 89-year-old female who basically fell. She struck her face. We admitted her. We consulted Neurology. They did an MRI, which confirmed a small basal ganglia stroke. Yesterday, she was doing well. We examined her. She was up, able to walk. Heart tones were normal. Lungs were clear. We discharged to home with home health. DISPOSITION: Home with home health. ACTIVITY: As tolerated. DIET: Low sodium. MEDICATIONS: Please see MRAD. TOTAL TIME: 31 minutes. KIARA OLIVAREZ DO DR: KARSTEN/drew JOB#: [id number] / [id number]
== END 2019-07-23 14:24 | disposition home health service (06) | DRG 65 ==
LOC: ER 01:33 → EDBD 01:33 → 6 SOUTH 03:44
PROVIDERS: ADMIT Family Medicine; ATTEND Family Medicine
DX: I63.9 Cerebral infarction, unspecified (principal); I50.32 Chronic diastolic (congestive) heart failure; M47.12 Other spondylosis with myelopathy, cervical region; D32.9 Benign neoplasm of meninges, unspecified; E03.9 Hypothyroidism, unspecified; E04.1 Nontoxic single thyroid nodule; E78.5 Hyperlipidemia, unspecified; F03.90 Unspecified dementia, unspecified severity, without behavioral disturbance, psychotic disturbance, mood disturbance, and anxiety; G62.9 Polyneuropathy, unspecified; I48.0 Paroxysmal atrial fibrillation; M19.041 Primary osteoarthritis, right hand; M19.042 Primary osteoarthritis, left hand; M47.22 Other spondylosis with radiculopathy, cervical region; M48.02 Spinal stenosis, cervical region; M85.80 Other specified disorders of bone density and structure, unspecified site; S00.81XA Abrasion of other part of head, initial encounter; S00.83XA Contusion of other part of head, initial encounter; Z79.82 Long term (current) use of aspirin; Z82.49 Family history of ischemic heart disease and other diseases of the circulatory system; Z86.73 Personal history of transient ischemic attack (TIA), and cerebral infarction without residual deficits; Z87.891 Personal history of nicotine dependence; Z83.3 Family history of diabetes mellitus; W18.39XA Other fall on same level, initial encounter; Y93.89 Activity, other specified; Y92.89 Other specified places as the place of occurrence of the external cause; Y99.8 Other external cause status
CPT/HCPCS: 36415; 70450; 70486; 70551; 71045; 72125; 72141; 73120; 80053; 80061; 81001; 82140; 82553; 83605; 83735; 83880; 84484; 85025; 85610; 85730; 87086; 93005; 93306; 93880; 96360; J3490; J7030; 92610; 97116; 97535; 99285-25; G0378